=== PATIENT | male | born 1945 | race Caucasian/White ===

== ENCOUNTER 2020-11-25 11:14 | Inpatient (IN) ==
[2020-11-25] MEDS ORDERED: LORazepam 2 MG/1 ML VIAL ONE (12:27)
[2020-11-25 12:48] LABS: ABG Base Excess -6.1 MMOL/L (-2.5-2.5); ABG Oxygen Saturation 96.2 % (95-100); ABG PCO2 25.6 MM HG (35-48); ABG PH 7.414 (7.35-7.45); ABG PO2 88.9 MM HG (80-95); ABG TCO2 16.8 MMOL/L (23-27)
[2020-11-25] MEDS ORDERED: LORazepam 2 MG/1 ML VIAL IV STA (12:48)
[2020-11-25 12:49] LABS: Basophils % 0.2 % (0.0-0.8); Hematocrit 53.3 VOL% (42.0-52.0); Hemoglobin 18.2 GM/DL (14.0-18.0); Immature Granulocytes % 0.8 %; Immature Granulocytes Absolute 0.13 #; Lymphocytes # 0.7 10*3/uL (1.4-4.0); Lymphocytes % 4.1 % (21.2-54.2); Mean Corpuscular HGB Conc 34.1 GM/DL (32-36); Mean Corpuscular Volume 89.3 FL (87-102); Monocytes % 5.1 % (1.7-12.7); Neutrophils % 89.8 % (38.7-73.9); Platelet Count 199 T/CUMM (130-400); Red Blood Count 5.97 MC/CUMM (3.8-5.5); Red Cell Distribution Width 14.4 % (9.3-17.3); White Blood Count 16.2 T/CUMM (4-12)
[2020-11-25 13:02] LABS: INR 1.6; PT Patient Result 17.1 SECS (10.5-12.0); Partial Thromboplastin Time 27.3 SECS (23.9-33.8)
[2020-11-25] MEDS ORDERED: ALBUTEROL 2.5 MG/3 ML NEB RESP TX PRN (13:25)
[2020-11-25] MEDS ORDERED: DILTIAZEM 50 MG/10 ML VIAL IV STA (13:28)
[2020-11-25] MEDS ORDERED: DILTIAZEM INJ 100 MG in SODIUM CHLORIDE 0.9% 100 ML IV SCH (13:30)
[2020-11-25] MEDS ORDERED: hydrALAZINE 20 MG/1 ML VIAL IV PRN (13:32)
[2020-11-25] MEDS ORDERED: ZIPRASIDONE 20 MG/1 ML VIAL IM ONE (13:37)
[2020-11-25] MEDS: FAMOTIDINE 20 MG/2 ML VIAL IV SCH (13:55)
[2020-11-25] MEDS: PIPERACILLIN/TAZOBACTAM 3,375 MG in SODIUM CHLORIDE 0.9% 100 ML IV SCH ×2 (14:00→22:46)
[2020-11-25 14:14] LABS: Ferritin 1596.9 ng/ml (26-388)
[2020-11-25] MEDS: ENOXAPARIN 100 MG/ML SYRINGE SUBCUT SCH (14:17)
[2020-11-25] MEDS ORDERED: FUROSEMIDE 40 MG/4 ML VIAL IV ONE (15:01)
[2020-11-25] MEDS ORDERED: ROCURONIUM 100 MG/10 ML VIAL IV ONE (15:33)
[2020-11-25] MEDS ORDERED: ACETAMINOPHEN 325 MG TABLET PO PRN (15:38)
[2020-11-25 15:41] LABS: Albumin 3.5 G/DL (3.4-5.0); Bilirubin,Total 1.8 MG/DL (0.20-1.00); Calcium 9.1 MG/DL (8.5-10.1); Osmolality,Calculated 299.5 MOS/KG (273-304); Potassium 4.4 MMOL/L (3.5-5.1); Total Protein 6.4 G/DL (6.4-8.2)
[2020-11-25] MEDS ORDERED: NOREPINEPHRINE 4 MG/4 ML VIAL IV ONE ×4 (15:43→21:30)
[2020-11-25] MEDS: NOREPINEPHRINE 8 MG in SODIUM CHLORIDE 0.9% 242 ML IV PRN ×2 (16:10→21:39)
[2020-11-25 16:14] LABS: Band Neutrophils 2 % (0-10); Lymphocytes 5 % (20-55); Platelet Estimate Normal; Segmented Neutrophils 86 % (50-85); Total Cells Counted 100
[2020-11-25] MEDS ORDERED: AMIODARONE INJ 450 MG in DEXTROSE 5% 241 ML IV SCH ×2 (16:30→18:00)
[2020-11-25 16:43] LABS: Basophils # 0.1 10*3/uL (0.0-0.2); Basophils % 0.3 % (0.0-0.8); Hematocrit 50.5 VOL% (42.0-52.0); Hemoglobin 17.2 GM/DL (14.0-18.0); Immature Granulocytes % 1.6 %; Immature Granulocytes Absolute 0.25 #; Lymphocytes # 1.2 10*3/uL (1.4-4.0); Lymphocytes % 7.6 % (21.2-54.2); Mean Corpuscular HGB Conc 34.1 GM/DL (32-36); Mean Corpuscular Volume 91.7 FL (87-102); Mean Platelet Volume 11.1 FL (9.6-12.0); Monocytes % 4.6 % (1.7-12.7); NRBC # 0.02 10*3/uL; Neutrophils % 85.9 % (38.7-73.9); Platelet Count 194 T/CUMM (130-400); Red Blood Count 5.51 MC/CUMM (3.8-5.5); Red Cell Distribution Width 14.3 % (9.3-17.3); White Blood Count 15.9 T/CUMM (4-12)
[2020-11-25 17:01] LABS: Albumin 3.2 G/DL (3.4-5.0); Bilirubin,Total 1.5 MG/DL (0.20-1.00); Calcium 8.6 MG/DL (8.5-10.1); INR 1.8; Osmolality,Calculated 310.4 MOS/KG (273-304); PT Patient Result 19.4 SECS (10.5-12.0); Potassium 4.8 MMOL/L (3.5-5.1); Total Protein 5.5 G/DL (6.4-8.2)
[2020-11-25 18:11] LABS: ABG HCO3 15.2 MMOL/L (20-26); ABG PCO2 46.9 MM HG (35-48); ABG PO2 127.4 MM HG (80-95); ABG TCO2 16.6 MMOL/L (23-27)
[2020-11-25] MEDS ORDERED: AMIODARONE 150 MG/3 ML VIAL ONE (18:11)
[2020-11-25 18:13] LABS: ABG PH 7.128 (7.35-7.45)
[2020-11-25] MEDS ORDERED: AMIODARONE INJ 150 MG in DEXTROSE 5% 100 ML IV ONE (18:15)
[2020-11-25] MEDS: SODIUM BICARB INJ 100 MEQ in DEXTROSE 5% 1,000 ML IV SCH (18:15)
[2020-11-25] MEDS: MIDAZOLAM 100 MG in SODIUM CHLORIDE 0.9% 80 ML IV PRN (18:45)
[2020-11-25] MEDS: SODIUM BICARB INJ 150 MEQ in DEXTROSE 5% 1,000 ML IV SCH (19:00)
[2020-11-25] MEDS: fentaNYL INJ 1,250 MCG in SODIUM CHLORIDE 0.9% 225 ML IV PRN (19:15)
[2020-11-25] MEDS: ASCORBIC ACID 500 MG TABLET PO SCH (22:51)
[2020-11-26] MEDS: AMIODARONE INJ 450 MG in DEXTROSE 5% 241 ML IV SCH ×3 (00:01→16:53)
[2020-11-26] MEDS: fentaNYL INJ 1,250 MCG in SODIUM CHLORIDE 0.9% 225 ML IV PRN ×2 (00:15→16:00)
[2020-11-26] MEDS: NOREPINEPHRINE 8 MG in SODIUM CHLORIDE 0.9% 242 ML IV PRN ×4 (01:21→22:01)
[2020-11-26] MEDS: ENOXAPARIN 100 MG/ML SYRINGE SUBCUT SCH (01:46)
[2020-11-26] MEDS: FAMOTIDINE 20 MG/2 ML VIAL IV SCH (01:46)
[2020-11-26 04:34] LABS: Basophils % 0.2 % (0.0-0.8); Hematocrit 48.9 VOL% (42.0-52.0); Hemoglobin 16.2 GM/DL (14.0-18.0); Immature Granulocytes % 1.2 %; Lymphocytes # 0.4 10*3/uL (1.4-4.0); Lymphocytes % 1.8 % (21.2-54.2); Mean Corpuscular HGB Conc 33.1 GM/DL (32-36); Mean Corpuscular Volume 92.8 FL (87-102); Mean Platelet Volume 11.8 FL (9.6-12.0); Monocytes % 2.6 % (1.7-12.7); NRBC # 0.02 10*3/uL; Neutrophils % 94.2 % (38.7-73.9); Platelet Count 207 T/CUMM (130-400); Red Blood Count 5.27 MC/CUMM (3.8-5.5); White Blood Count 24.2 T/CUMM (4-12)
[2020-11-26 04:45] LABS: INR 1.7
[2020-11-26 04:53] LABS: ABG Base Excess -11.6 MMOL/L (-2.5-2.5); ABG HCO3 15.1 MMOL/L (20-26); ABG Oxygen Saturation 70.2 % (95-100); ABG PCO2 57.7 MM HG (35-48); ABG TCO2 17.2 MMOL/L (23-27)
[2020-11-26 04:56] LABS: ABG PH 7.137 (7.35-7.45)
[2020-11-26 05:03] LABS: Albumin 2.9 G/DL (3.4-5.0); Bilirubin,Total 1.5 MG/DL (0.20-1.00); Calcium 7.5 MG/DL (8.5-10.1); Osmolality,Calculated 312.5 MOS/KG (273-304); Risk Ratio 5.94; Thyroid Stimulating Hormone 1.47 uIU/ml (0.358-3.74); Total Protein 5.5 G/DL (6.4-8.2); VLDL Cholesterol 63.8 MG/DL
[2020-11-26 05:10] LABS: Potassium 6.7 MMOL/L (3.5-5.1)
[2020-11-26 05:11] LABS: Lymphocytes 1 % (20-55); Platelet Estimate Adequate; Segmented Neutrophils 97 % (50-85); Total Cells Counted 100
[2020-11-26] MEDS ORDERED: INSULIN REGULAR 100 UNIT/ML IV ONE ×2 (05:16→10:34)
[2020-11-26] MEDS ORDERED: SODIUM CHLORIDE 0.9% 1,000 ML IV ONE ×2 (05:16→13:06)
[2020-11-26 05:26] LABS: ABG Base Excess -10.1 MMOL/L (-2.5-2.5); ABG HCO3 17.3 MMOL/L (20-26); ABG Oxygen Saturation 99.3 % (95-100); ABG PCO2 43.3 MM HG (35-48); ABG PO2 297.8 MM HG (80-95); ABG TCO2 18.7 MMOL/L (23-27)
[2020-11-26] MEDS: PIPERACILLIN/TAZOBACTAM 3,375 MG in SODIUM CHLORIDE 0.9% 100 ML IV SCH ×2 (06:26→17:29)
[2020-11-26] MEDS: SODIUM BICARB INJ 100 MEQ in DEXTROSE 5% 1,000 ML IV SCH (06:50)
[2020-11-26] MEDS: ASCORBIC ACID 500 MG TABLET PO SCH ×2 (08:19→20:02)
[2020-11-26] MEDS: CHOLECALCIFEROL 1,000 UNIT TABLET PO SCH (08:19)
[2020-11-26] MEDS: ZINC GLUCONATE 50 MG TABLET PO SCH (08:19)
[2020-11-26] MEDS: INSULIN REGULAR 100 UNIT/ML SUBCUT SCH ×4 (08:20→20:02)
[2020-11-26] MEDS ORDERED: CALCIUM GLUCONATE 1,000 MG in SODIUM CHLORIDE 0.9% 100 ML IV ONE (08:44)
[2020-11-26] MEDS: MICAFUNGIN 100 MG in SODIUM CHLORIDE 0.9% 100 ML IV SCH (09:13)
[2020-11-26] MEDS: SODIUM BICARB INJ 150 MEQ in STERILE WATER INJ 1,000 ML IV SCH ×2 (09:14→21:21)
[2020-11-26] MEDS: INSULIN GLARGINE 100 UNIT/ML SUBCUT SCH (09:36)
[2020-11-26] MEDS: RIFAXIMIN 550 MG TABLET PO SCH ×2 (09:40→21:00)
[2020-11-26] MEDS: ASPIRIN CHEW 81 MG TABLET PO SCH (10:24)
[2020-11-26] MEDS: SODIUM ZIRCONIUM CYCLOSILICATE 10 GM PACK PO SCH ×2 (10:24→14:29)
[2020-11-26] MEDS: SODIUM BICARB INJ 150 MEQ in DEXTROSE 5% 1,000 ML IV SCH (13:11)
[2020-11-26 15:03] LABS: Calcium 6.8 MG/DL (8.5-10.1); Osmolality,Calculated 312.7 MOS/KG (273-304); Potassium 4.8 MMOL/L (3.5-5.1)
[2020-11-26] MEDS ORDERED: SODIUM CHLORIDE 0.9% 250 ML IV ONE (16:08)
[2020-11-26] MEDS: MIDAZOLAM 100 MG in SODIUM CHLORIDE 0.9% 80 ML IV PRN (19:16)
[2020-11-26 19:34] LABS: Hepatitis B Core IgM Quant 0.07 Index; Hepatitis B Surface Ag Quant < 0.10 Index; Hepatitis B Surface Ag Result Non-Reactive (NonReactive); Hepatitis C Virus Ab Quant 0.05 Index; Hepatitis C Virus Ab Result Non-Reactive (NonReactive)
[2020-11-27] MEDS: SODIUM BICARB INJ 150 MEQ in STERILE WATER INJ 1,000 ML IV SCH ×2 (00:04→12:45)
[2020-11-27] MEDS ORDERED: SODIUM CHLORIDE 0.9% 250 ML IV ONE ×2 (00:05→04:07)
[2020-11-27] MEDS ORDERED: ENOXAPARIN 100 MG/ML SYRINGE SUBCUT SCH (01:00)
[2020-11-27] MEDS: INSULIN REGULAR 100 UNIT/ML SUBCUT SCH ×6 (01:37→22:16)
[2020-11-27 04:39] LABS: Calcium 6.9 MG/DL (8.5-10.1); Potassium 3.9 MMOL/L (3.5-5.1)
[2020-11-27 04:54] LABS: Basophils % 0.1 % (0.0-0.8); Eosinophils # 0.2 10*3/uL (0.0-0.87); Eosinophils % 1.6 % (0.00-10.9); Hematocrit 42.2 VOL% (42.0-52.0); Hemoglobin 14.6 GM/DL (14.0-18.0); Immature Granulocytes % 0.8 %; Immature Granulocytes Absolute 0.09 #; Lymphocytes # 0.5 10*3/uL (1.4-4.0); Lymphocytes % 4.5 % (21.2-54.2); Mean Corpuscular HGB Conc 34.6 GM/DL (32-36); Mean Corpuscular Volume 90.6 FL (87-102); Mean Platelet Volume 12.5 FL (9.6-12.0); NRBC # 0.02 10*3/uL; Red Blood Count 4.66 MC/CUMM (3.8-5.5); Red Cell Distribution Width 15.2 % (9.3-17.3)
[2020-11-27 04:56] LABS: Platelet Count 140 T/CUMM (130-400)
[2020-11-27 05:45] LABS: ABG HCO3 20.6 MMOL/L (20-26); ABG Oxygen Saturation 95.5 % (95-100); ABG PCO2 40.1 MM HG (35-48); ABG PH 7.328 (7.35-7.45); ABG PO2 82.3 MM HG (80-95); ABG TCO2 21.8 MMOL/L (23-27)
[2020-11-27] MEDS: PIPERACILLIN/TAZOBACTAM 3,375 MG in SODIUM CHLORIDE 0.9% 100 ML IV SCH ×2 (05:54→17:08)
[2020-11-27] MEDS: NOREPINEPHRINE 8 MG in SODIUM CHLORIDE 0.9% 242 ML IV PRN ×2 (06:00→15:22)
[2020-11-27] MEDS: fentaNYL INJ 1,250 MCG in SODIUM CHLORIDE 0.9% 225 ML IV PRN (06:25)
[2020-11-27 07:04] LABS: Bilirubin,Urine Negative (Negative); Blood, Urine Large mg/dL (Negative); Glucose,Urine (UA) >=500 mg/dL (Negative); Ketones,Urine Negative (Negative); Nitrite,Urine Negative (Negative); Protein,Urine 100 MG/DL; RBC,Urine 1004 /HPF (0-4); Squamous Epithelial Cell,Urine Occasional /HPF (0-10); Urine Appearance CLOUDY (Clear); Urine Color Amber (Yellow); Urine Specific Gravity 1.018 (1.001-1.035); Urine Urobilinogen < 2.0 EU/DL (0.2-1.0)
[2020-11-27] MEDS: AMIODARONE INJ 450 MG in DEXTROSE 5% 241 ML IV SCH ×2 (07:20→23:32)
[2020-11-27] MEDS: ASPIRIN CHEW 81 MG TABLET PO SCH (08:30)
[2020-11-27] MEDS: CHOLECALCIFEROL 1,000 UNIT TABLET PO SCH (08:30)
[2020-11-27] MEDS: ZINC GLUCONATE 50 MG TABLET PO SCH (08:30)
[2020-11-27] MEDS: MICAFUNGIN 100 MG in SODIUM CHLORIDE 0.9% 100 ML IV SCH (08:31)
[2020-11-27] MEDS: ASCORBIC ACID 500 MG TABLET PO SCH ×2 (08:31→22:16)
[2020-11-27] MEDS: FAMOTIDINE 20 MG/2 ML VIAL IV SCH (08:35)
[2020-11-27] MEDS ORDERED: SODIUM ZIRCONIUM CYCLOSILICATE 10 GM PACK PO SCH (09:00)
[2020-11-27] MEDS ORDERED: DEXAMETHASONE 4 MG/1 ML VIAL IV SCH (09:00)
[2020-11-27] MEDS: RIFAXIMIN 550 MG TABLET PO SCH ×2 (09:21→22:17)
[2020-11-27] MEDS: INSULIN GLARGINE 100 UNIT/ML SUBCUT SCH (09:22)
[2020-11-27] MEDS: HEPARIN DRIP 25,000 UNITS/500 ML PREMIX IV SCH ×2 (10:20→23:26)
[2020-11-27 11:50] LABS: Lymphocytes 2 % (20-55); Segmented Neutrophils 96 % (50-85); Total Cells Counted 100
[2020-11-27 11:51] LABS: Platelet Estimate Adequate
[2020-11-27] MEDS: MIDAZOLAM 100 MG in SODIUM CHLORIDE 0.9% 80 ML IV PRN (12:14)
[2020-11-27] MEDS ORDERED: HEPARIN 5,000 UNIT/1 ML VIAL IV ONE (17:02)
[2020-11-27] MEDS ORDERED: METOPROLOL TARTRATE 5 MG/5 ML VIAL IV ONE (18:01)
[2020-11-27] MEDS ORDERED: INSULIN GLARGINE 100 UNIT/ML SUBCUT SCH (21:00)
[2020-11-27] MEDS: DEXAMETHASONE 4 MG/1 ML VIAL IV SCH (22:17)
[2020-11-28] MEDS: NOREPINEPHRINE 8 MG in SODIUM CHLORIDE 0.9% 242 ML IV PRN ×2 (00:36→16:13)
[2020-11-28] MEDS: INSULIN REGULAR 100 UNIT/ML SUBCUT SCH ×6 (00:36→20:38)
[2020-11-28] MEDS: MIDAZOLAM 100 MG in SODIUM CHLORIDE 0.9% 80 ML IV PRN ×2 (00:50→19:36)
[2020-11-28] MEDS: fentaNYL INJ 1,250 MCG in SODIUM CHLORIDE 0.9% 225 ML IV PRN (03:13)
[2020-11-28 04:55] LABS: Basophils % 0.1 % (0.0-0.8); Hematocrit 38.5 VOL% (42.0-52.0); Hemoglobin 13.1 GM/DL (14.0-18.0); Immature Granulocytes % 1.2 %; Immature Granulocytes Absolute 0.15 #; Lymphocytes # 0.1 10*3/uL (1.4-4.0); Lymphocytes % 0.7 % (21.2-54.2); Mean Corpuscular Volume 91.4 FL (87-102); Mean Platelet Volume 12.6 FL (9.6-12.0); Platelet Count 139 T/CUMM (130-400); Red Blood Count 4.21 MC/CUMM (3.8-5.5); Red Cell Distribution Width 15.1 % (9.3-17.3); White Blood Count 12.4 T/CUMM (4-12)
[2020-11-28 05:04] LABS: ABG Base Excess -7.5 MMOL/L (-2.5-2.5); ABG HCO3 18.8 MMOL/L (20-26); ABG Oxygen Saturation 93.5 % (95-100); ABG PCO2 41.2 MM HG (35-48); ABG PH 7.278 (7.35-7.45); ABG PO2 74.1 MM HG (80-95); ABG TCO2 20.1 MMOL/L (23-27)
[2020-11-28 05:33] LABS: Ferritin 2314.9 ng/ml (26-388)
[2020-11-28] MEDS: PIPERACILLIN/TAZOBACTAM 3,375 MG in SODIUM CHLORIDE 0.9% 100 ML IV SCH ×2 (05:55→17:59)
[2020-11-28] MEDS: MICAFUNGIN 100 MG in SODIUM CHLORIDE 0.9% 100 ML IV SCH (08:29)
[2020-11-28] MEDS: CHOLECALCIFEROL 1,000 UNIT TABLET PO SCH (08:30)
[2020-11-28] MEDS: FAMOTIDINE 20 MG/2 ML VIAL IV SCH (08:30)
[2020-11-28] MEDS: ASPIRIN CHEW 81 MG TABLET PO SCH (08:30)
[2020-11-28] MEDS: ZINC GLUCONATE 50 MG TABLET PO SCH (08:30)
[2020-11-28] MEDS: DEXAMETHASONE 4 MG/1 ML VIAL IV SCH ×2 (08:30→20:37)
[2020-11-28] MEDS: ASCORBIC ACID 500 MG TABLET PO SCH ×2 (08:30→20:39)
[2020-11-28] MEDS ORDERED: INSULIN GLARGINE 100 UNIT/ML SUBCUT ONE (09:19)
[2020-11-28] MEDS: RIFAXIMIN 550 MG TABLET PO SCH ×2 (09:40→20:37)
[2020-11-28 10:21] LABS: Lymphocytes 1 % (20-55); Platelet Estimate Adequate; Segmented Neutrophils 99 % (50-85); Total Cells Counted 100
[2020-11-28] MEDS: HEPARIN DRIP 25,000 UNITS/500 ML PREMIX IV SCH ×2 (11:03→13:25)
[2020-11-28] MEDS ORDERED: METOPROLOL TARTRATE 5 MG/5 ML VIAL IV SCH (12:00)
[2020-11-28 13:37] LABS: Albumin 1.9 G/DL (3.4-5.0); Bilirubin,Total 0.8 MG/DL (0.20-1.00); Calcium 6.9 MG/DL (8.5-10.1); Osmolality,Calculated 300.4 MOS/KG (273-304); Potassium 4.9 MMOL/L (3.5-5.1); Total Protein 4.7 G/DL (6.4-8.2)
[2020-11-28] MEDS: AMIODARONE INJ 450 MG in DEXTROSE 5% 241 ML IV SCH ×2 (13:37→15:50)
[2020-11-28] MEDS: INSULIN GLARGINE 100 UNIT/ML SUBCUT SCH (20:38)
[2020-11-28] MEDS: METOPROLOL TARTRATE 5 MG/5 ML VIAL IV PRN (22:51)
[2020-11-29] MEDS: INSULIN REGULAR 100 UNIT/ML SUBCUT SCH ×6 (00:01→21:56)
[2020-11-29 03:31] LABS: Basophils % 0.1 % (0.0-0.8); Immature Granulocytes % 0.8 %; Immature Granulocytes Absolute 0.12 #; Lymphocytes # 0.2 10*3/uL (1.4-4.0); Lymphocytes % 1.5 % (21.2-54.2); Mean Corpuscular HGB Conc 34.3 GM/DL (32-36); Mean Corpuscular Volume 90.4 FL (87-102); NRBC # 0.03 10*3/uL; Neutrophils % 94.6 % (38.7-73.9); Platelet Count 212 T/CUMM (130-400); Red Blood Count 3.87 MC/CUMM (3.8-5.5); Red Cell Distribution Width 15.2 % (9.3-17.3); White Blood Count 14.5 T/CUMM (4-12)
[2020-11-29] MEDS: AMIODARONE INJ 450 MG in DEXTROSE 5% 241 ML IV SCH ×3 (03:41→18:00)
[2020-11-29 03:53] LABS: Bilirubin,Total 0.7 MG/DL (0.20-1.00); Calcium 6.7 MG/DL (8.5-10.1); Osmolality,Calculated 300.4 MOS/KG (273-304); Potassium 5.1 MMOL/L (3.5-5.1); Total Protein 4.8 G/DL (6.4-8.2)
[2020-11-29 03:57] LABS: Calcium 6.9 MG/DL (8.5-10.1); Osmolality,Calculated 302.2 MOS/KG (273-304); Potassium 5.1 MMOL/L (3.5-5.1)
[2020-11-29 04:12] LABS: Lymphocytes 2 % (20-55); Platelet Estimate Normal; Segmented Neutrophils 96 % (50-85); Total Cells Counted 100
[2020-11-29] MEDS: NOREPINEPHRINE 8 MG in SODIUM CHLORIDE 0.9% 242 ML IV PRN ×2 (04:29→17:00)
[2020-11-29] MEDS: fentaNYL INJ 1,250 MCG in SODIUM CHLORIDE 0.9% 225 ML IV PRN ×2 (04:36→20:40)
[2020-11-29 04:51] LABS: ABG Oxygen Saturation 98.2 % (95-100); ABG PCO2 46.4 MM HG (35-48); ABG PH 7.234 (7.35-7.45); ABG TCO2 17.7 MMOL/L (23-27)
[2020-11-29] MEDS: PIPERACILLIN/TAZOBACTAM 3,375 MG in SODIUM CHLORIDE 0.9% 100 ML IV SCH ×2 (05:50→18:17)
[2020-11-29] MEDS: DEXAMETHASONE 4 MG/1 ML VIAL IV SCH ×2 (08:43→21:56)
[2020-11-29] MEDS: FAMOTIDINE 20 MG/2 ML VIAL IV SCH (08:43)
[2020-11-29] MEDS: RIFAXIMIN 550 MG TABLET PO SCH ×2 (08:44→21:58)
[2020-11-29] MEDS: ASCORBIC ACID 500 MG TABLET PO SCH ×2 (08:44→21:58)
[2020-11-29] MEDS: ASPIRIN CHEW 81 MG TABLET PO SCH (08:44)
[2020-11-29] MEDS: ZINC GLUCONATE 50 MG TABLET PO SCH (08:44)
[2020-11-29] MEDS: CHOLECALCIFEROL 1,000 UNIT TABLET PO SCH (08:44)
[2020-11-29] MEDS: MICAFUNGIN 100 MG in SODIUM CHLORIDE 0.9% 100 ML IV SCH (08:45)
[2020-11-29] MEDS: METOPROLOL TARTRATE 5 MG/5 ML VIAL IV PRN (13:59)
[2020-11-29] MEDS: MIDAZOLAM 100 MG in SODIUM CHLORIDE 0.9% 80 ML IV PRN (21:54)
[2020-11-29] MEDS: INSULIN GLARGINE 100 UNIT/ML SUBCUT SCH (21:55)
[2020-11-29] MEDS: ONDANSETRON 4 MG/2 ML VIAL IV PRN (22:05)
[2020-11-29] MEDS ORDERED: PROMETHAZINE INJ 25 MG in SODIUM CHLORIDE 0.9% 50 ML IV ONE (23:06)
[2020-11-30] MEDS: AMIODARONE INJ 450 MG in DEXTROSE 5% 241 ML IV SCH ×2 (01:28→10:57)
[2020-11-30] MEDS: INSULIN REGULAR 100 UNIT/ML SUBCUT SCH ×6 (01:47→21:50)
[2020-11-30] MEDS: NOREPINEPHRINE 8 MG in SODIUM CHLORIDE 0.9% 242 ML IV PRN ×2 (03:20→18:19)
[2020-11-30 03:42] LABS: ABG Base Excess -9.2 MMOL/L (-2.5-2.5); ABG HCO3 20.4 MMOL/L (20-26); ABG Oxygen Saturation 95.1 % (95-100); ABG PCO2 61.8 MM HG (35-48); ABG PO2 93.5 MM HG (80-95); ABG TCO2 22.3 MMOL/L (23-27); Allen Test Positive; Pt O2 Delivery Device Ventilator
[2020-11-30 03:54] LABS: ABG PH 7.137 (7.35-7.45)
[2020-11-30] MEDS ORDERED: SODIUM BICARBONATE 50 MEQ/50 ML VIAL IV ONE (04:24)
[2020-11-30 05:04] LABS: Basophils % 0.1 % (0.0-0.8); Hematocrit 33.2 VOL% (42.0-52.0); Hemoglobin 11.3 GM/DL (14.0-18.0); Immature Granulocytes % 1.3 %; Immature Granulocytes Absolute 0.19 #; Lymphocytes # 0.1 10*3/uL (1.4-4.0); Lymphocytes % 0.9 % (21.2-54.2); Mean Corpuscular Volume 91.7 FL (87-102); Mean Platelet Volume 12.3 FL (9.6-12.0); Monocytes % 5.2 % (1.7-12.7); NRBC # 0.03 10*3/uL; Neutrophils % 92.5 % (38.7-73.9); Platelet Count 191 T/CUMM (130-400); Red Blood Count 3.62 MC/CUMM (3.8-5.5); Red Cell Distribution Width 15.5 % (9.3-17.3)
[2020-11-30 05:28] LABS: Albumin 2.1 G/DL (3.4-5.0); Bilirubin,Total 1.5 MG/DL (0.20-1.00); Calcium 7.1 MG/DL (8.5-10.1); Osmolality,Calculated 299.1 MOS/KG (273-304); Potassium 5.1 MMOL/L (3.5-5.1); Total Protein 4.9 G/DL (6.4-8.2)
[2020-11-30 05:33] LABS: Hypochromasia 1+; Lymphocytes 2 % (20-55); Microcytosis 1+; Platelet Estimate Adequate; Segmented Neutrophils 94 % (50-85); Total Cells Counted 100
[2020-11-30] MEDS: PIPERACILLIN/TAZOBACTAM 3,375 MG in SODIUM CHLORIDE 0.9% 100 ML IV SCH ×2 (05:50→17:00)
[2020-11-30] MEDS: FAMOTIDINE 20 MG/2 ML VIAL IV SCH (08:32)
[2020-11-30] MEDS: DEXAMETHASONE 4 MG/1 ML VIAL IV SCH ×2 (08:33→21:52)
[2020-11-30] MEDS: RIFAXIMIN 550 MG TABLET PO SCH ×2 (08:33→21:50)
[2020-11-30] MEDS: ASPIRIN CHEW 81 MG TABLET PO SCH (08:34)
[2020-11-30] MEDS: ZINC GLUCONATE 50 MG TABLET PO SCH (08:34)
[2020-11-30] MEDS: CHOLECALCIFEROL 1,000 UNIT TABLET PO SCH (08:34)
[2020-11-30] MEDS: MICAFUNGIN 100 MG in SODIUM CHLORIDE 0.9% 100 ML IV SCH (08:41)
[2020-11-30] MEDS: ASCORBIC ACID 500 MG TABLET PO SCH ×2 (08:41→21:50)
[2020-11-30] MEDS ORDERED: DIGOXIN 0.5 MG/2 ML AMP IV ONE ×2 (11:46→12:47)
[2020-11-30] MEDS: METOPROLOL TARTRATE 5 MG/5 ML VIAL IV PRN ×2 (12:07→19:23)
[2020-11-30] MEDS ORDERED: HEPARIN 10,000 UNIT/10 ML VIAL IV PRN (15:32)
[2020-11-30] MEDS: MIDAZOLAM 100 MG in SODIUM CHLORIDE 0.9% 80 ML IV PRN (16:03)
[2020-11-30] MEDS: ALUMINUM/MAGNES/SIMETH MAX STR 30 ML UDCUP PO SCH ×2 (18:14→21:52)
[2020-11-30] MEDS: AMIODARONE 200 MG TABLET PO SCH (21:50)
[2020-11-30] MEDS: INSULIN GLARGINE 100 UNIT/ML SUBCUT SCH (21:51)
[2020-11-30] MEDS: ONDANSETRON 4 MG/2 ML VIAL IV PRN (21:51)
[2020-11-30] MEDS: fentaNYL INJ 1,250 MCG in SODIUM CHLORIDE 0.9% 225 ML IV PRN (23:05)
[2020-12-01] MEDS: INSULIN REGULAR 100 UNIT/ML SUBCUT SCH ×6 (00:55→20:46)
[2020-12-01] MEDS: ALUMINUM/MAGNES/SIMETH MAX STR 30 ML UDCUP PO SCH ×6 (00:58→20:47)
[2020-12-01] MEDS: METOPROLOL TARTRATE 5 MG/5 ML VIAL IV PRN ×3 (03:03→22:30)
[2020-12-01 04:05] LABS: ABG Base Excess -4.6 MMOL/L (-2.5-2.5); ABG HCO3 20.3 MMOL/L (20-26); ABG Oxygen Saturation 98.5 % (95-100); ABG PCO2 36.8 MM HG (35-48); ABG PO2 203.4 MM HG (80-95); ABG TCO2 21.5 MMOL/L (23-27); Allen Test Positive; Pt O2 Delivery Device Ventilator
[2020-12-01 05:10] LABS: Basophils % 0.1 % (0.0-0.8); Hematocrit 27.6 VOL% (42.0-52.0); Hemoglobin 9.9 GM/DL (14.0-18.0); Immature Granulocytes Absolute 0.33 #; Lymphocytes # 0.3 10*3/uL (1.4-4.0); Lymphocytes % 1.8 % (21.2-54.2); Mean Corpuscular HGB Conc 35.9 GM/DL (32-36); Mean Corpuscular Volume 89.9 FL (87-102); Mean Platelet Volume 12.1 FL (9.6-12.0); Monocytes % 5.1 % (1.7-12.7); NRBC # 0.09 10*3/uL; Platelet Count 161 T/CUMM (130-400); Red Blood Count 3.07 MC/CUMM (3.8-5.5); Red Cell Distribution Width 15.7 % (9.3-17.3); White Blood Count 16.2 T/CUMM (4-12)
[2020-12-01 05:32] LABS: Hypochromasia 1+; Lymphocytes 2 % (20-55); Microcytosis 1+; Platelet Estimate Adequate; Segmented Neutrophils 91 % (50-85); Total Cells Counted 100
[2020-12-01 05:36] LABS: Osmolality,Calculated 296.1 MOS/KG (273-304); Potassium 4.3 MMOL/L (3.5-5.1)
[2020-12-01] MEDS: PIPERACILLIN/TAZOBACTAM 3,375 MG in SODIUM CHLORIDE 0.9% 100 ML IV SCH ×2 (06:31→18:31)
[2020-12-01] MEDS: NOREPINEPHRINE 8 MG in SODIUM CHLORIDE 0.9% 242 ML IV PRN (06:45)
[2020-12-01] MEDS: MIDAZOLAM 100 MG in SODIUM CHLORIDE 0.9% 80 ML IV PRN (09:15)
[2020-12-01] MEDS: ASPIRIN CHEW 81 MG TABLET PO SCH (09:26)
[2020-12-01] MEDS: AMIODARONE 200 MG TABLET PO SCH ×2 (09:26→20:47)
[2020-12-01] MEDS: DEXAMETHASONE 4 MG/1 ML VIAL IV SCH ×2 (09:26→20:47)
[2020-12-01] MEDS: ASCORBIC ACID 500 MG TABLET PO SCH ×2 (09:27→20:48)
[2020-12-01] MEDS: ZINC GLUCONATE 50 MG TABLET PO SCH (09:27)
[2020-12-01] MEDS: FAMOTIDINE 20 MG/2 ML VIAL IV SCH (09:27)
[2020-12-01] MEDS: CHOLECALCIFEROL 1,000 UNIT TABLET PO SCH (09:27)
[2020-12-01] MEDS: RIFAXIMIN 550 MG TABLET PO SCH ×2 (09:27→20:48)
[2020-12-01] MEDS: MICAFUNGIN 100 MG in SODIUM CHLORIDE 0.9% 100 ML IV SCH (10:15)
[2020-12-01] MEDS ORDERED: DEXTROSE 10% 1,000 ML IV PRN (17:00)
[2020-12-01] MEDS: [UNRECOGNIZED DRUG - OTHER] IV SCH (17:39)
[2020-12-01] MEDS: AMINO ACIDS IV SCH (17:39)
[2020-12-01] MEDS: MULTIVITAMIN IV SCH (17:39)
[2020-12-01] MEDS: INSULIN REGULAR IV SCH (17:39)
[2020-12-01] MEDS: FAT EMULSION 20% 250 ML IV SCH (17:39)
[2020-12-01] MEDS: INSULIN GLARGINE 100 UNIT/ML SUBCUT SCH (20:47)
[2020-12-02] MEDS: INSULIN REGULAR 100 UNIT/ML SUBCUT SCH ×6 (00:22→21:20)
[2020-12-02] MEDS: ALUMINUM/MAGNES/SIMETH MAX STR 30 ML UDCUP PO SCH ×6 (00:26→21:20)
[2020-12-02 04:32] LABS: Calcium 6.9 MG/DL (8.5-10.1); Osmolality,Calculated 311.5 MOS/KG (273-304); Potassium 4.4 MMOL/L (3.5-5.1)
[2020-12-02] MEDS: PIPERACILLIN/TAZOBACTAM 3,375 MG in SODIUM CHLORIDE 0.9% 100 ML IV SCH ×2 (05:14→18:34)
[2020-12-02 05:22] LABS: Allen Test Positive; Pt O2 Delivery Device Ventilator
[2020-12-02 05:24] LABS: ABG Base Excess -8.2 MMOL/L (-2.5-2.5); ABG HCO3 17.7 MMOL/L (20-26); ABG Oxygen Saturation 96.9 % (95-100); ABG PCO2 37.5 MM HG (35-48); ABG PH 7.291 (7.35-7.45); ABG TCO2 18.8 MMOL/L (23-27)
[2020-12-02] MEDS: METOPROLOL TARTRATE 5 MG/5 ML VIAL IV PRN ×2 (09:00→18:17)
[2020-12-02] MEDS: CHOLECALCIFEROL 1,000 UNIT TABLET PO SCH (09:35)
[2020-12-02] MEDS: ASPIRIN CHEW 81 MG TABLET PO SCH (09:35)
[2020-12-02] MEDS: ASCORBIC ACID 500 MG TABLET PO SCH ×2 (09:35→21:22)
[2020-12-02] MEDS: FAMOTIDINE 20 MG/2 ML VIAL IV SCH (09:35)
[2020-12-02] MEDS: DEXAMETHASONE 4 MG/1 ML VIAL IV SCH ×2 (09:35→21:21)
[2020-12-02] MEDS: AMIODARONE 200 MG TABLET PO SCH ×2 (09:35→21:21)
[2020-12-02] MEDS: ZINC GLUCONATE 50 MG TABLET PO SCH (09:36)
[2020-12-02] MEDS: RIFAXIMIN 550 MG TABLET PO SCH ×2 (09:36→21:23)
[2020-12-02] MEDS: MICAFUNGIN 100 MG in SODIUM CHLORIDE 0.9% 100 ML IV SCH (10:30)
[2020-12-02] MEDS ORDERED: METOPROLOL TARTRATE 5 MG/5 ML VIAL IV ONE (10:40)
[2020-12-02] MEDS: MORPHINE 2 MG/1 ML SYRINGE IV PRN (11:10)
[2020-12-02] MEDS ORDERED: DIGOXIN 0.5 MG/2 ML AMP IV ONE ×2 (14:26→15:30)
[2020-12-02] MEDS: FAT EMULSION 20% 250 ML IV SCH (16:39)
[2020-12-02] MEDS: [UNRECOGNIZED DRUG - OTHER] IV SCH (18:11)
[2020-12-02] MEDS: MULTIVITAMIN IV SCH (18:11)
[2020-12-02] MEDS: AMINO ACIDS IV SCH (18:11)
[2020-12-02] MEDS: INSULIN REGULAR IV SCH (18:11)
[2020-12-02] MEDS: fentaNYL INJ 1,250 MCG in SODIUM CHLORIDE 0.9% 225 ML IV PRN (18:34)
[2020-12-02] MEDS: MIDAZOLAM 100 MG in SODIUM CHLORIDE 0.9% 80 ML IV PRN (18:34)
[2020-12-02] MEDS: INSULIN GLARGINE 100 UNIT/ML SUBCUT SCH (21:22)
[2020-12-03] MEDS: INSULIN REGULAR 100 UNIT/ML SUBCUT SCH ×7 (00:21→23:45)
[2020-12-03] MEDS: ALUMINUM/MAGNES/SIMETH MAX STR 30 ML UDCUP PO SCH ×6 (01:30→21:00)
[2020-12-03 04:26] LABS: Basophils % 0.1 % (0.0-0.8); Hematocrit 27.9 VOL% (42.0-52.0); Hemoglobin 9.6 GM/DL (14.0-18.0); Immature Granulocytes % 3.9 %; Immature Granulocytes Absolute 0.79 #; Lymphocytes # 0.3 10*3/uL (1.4-4.0); Lymphocytes % 1.5 % (21.2-54.2); Mean Corpuscular HGB Conc 34.4 GM/DL (32-36); Mean Corpuscular Volume 93.3 FL (87-102); Mean Platelet Volume 12.7 FL (9.6-12.0); Monocytes % 6.3 % (1.7-12.7); NRBC # 0.48 10*3/uL; Neutrophils % 88.2 % (38.7-73.9); Platelet Count 155 T/CUMM (130-400); Red Blood Count 2.99 MC/CUMM (3.8-5.5); Red Cell Distribution Width 16.5 % (9.3-17.3); White Blood Count 20.2 T/CUMM (4-12)
[2020-12-03 04:35] LABS: ABG Base Excess -7.7 MMOL/L (-2.5-2.5); ABG Oxygen Saturation 95.5 % (95-100); ABG PCO2 37.1 MM HG (35-48); ABG PH 7.304 (7.35-7.45); ABG PO2 99.6 MM HG (80-95); ABG TCO2 19.1 MMOL/L (23-27); Allen Test Positive; Pt O2 Delivery Device Ventilator
[2020-12-03 04:50] LABS: Osmolality,Calculated 312.7 MOS/KG (273-304); Potassium 4.8 MMOL/L (3.5-5.1)
[2020-12-03 05:02] LABS: Lymphocytes 2 % (20-55); Nucleated Red Blood Cells 2 (0-5); Polychromasia Slight; Segmented Neutrophils 91 % (50-85); Total Cells Counted 100
[2020-12-03 05:03] LABS: Microcytosis 1+; Ovalocytes Slight; Platelet Estimate Adequate
[2020-12-03] MEDS: PIPERACILLIN/TAZOBACTAM 3,375 MG in SODIUM CHLORIDE 0.9% 100 ML IV SCH (06:41)
[2020-12-03] MEDS ORDERED: INSULIN GLARGINE 100 UNIT/ML SUBCUT ONE (08:00)
[2020-12-03] MEDS: MICAFUNGIN 100 MG in SODIUM CHLORIDE 0.9% 100 ML IV SCH (09:30)
[2020-12-03] MEDS: ASPIRIN CHEW 81 MG TABLET PO SCH (09:42)
[2020-12-03] MEDS: AMIODARONE 200 MG TABLET PO SCH ×2 (09:42→21:30)
[2020-12-03] MEDS: METOPROLOL TARTRATE 25 MG TABLET PO SCH ×2 (09:42→21:30)
[2020-12-03] MEDS: DEXAMETHASONE 4 MG/1 ML VIAL IV SCH ×2 (09:42→21:30)
[2020-12-03] MEDS: ZINC GLUCONATE 50 MG TABLET PO SCH (09:43)
[2020-12-03] MEDS: ASCORBIC ACID 500 MG TABLET PO SCH ×2 (09:43→21:30)
[2020-12-03] MEDS: RIFAXIMIN 550 MG TABLET PO SCH (09:43)
[2020-12-03] MEDS: FAMOTIDINE 20 MG/2 ML VIAL IV SCH (09:43)
[2020-12-03] MEDS: CHOLECALCIFEROL 1,000 UNIT TABLET PO SCH (09:43)
[2020-12-03] MEDS: HEPARIN DRIP 25,000 UNITS/500 ML PREMIX IV SCH (13:51)
[2020-12-03] MEDS ORDERED: AMINO ACIDS 10% IV SCH (17:00)
[2020-12-03] MEDS ORDERED: MULTIVITAMIN IV SCH (17:00)
[2020-12-03] MEDS ORDERED: [UNRECOGNIZED DRUG - OTHER] IV SCH (17:00)
[2020-12-03] MEDS ORDERED: INSULIN REGULAR IV SCH (17:00)
[2020-12-03] MEDS: FAT EMULSION 20% 250 ML IV SCH (17:07)
[2020-12-03] MEDS: MORPHINE 2 MG/1 ML SYRINGE IV PRN (17:50)
[2020-12-03] MEDS ORDERED: INSULIN GLARGINE 100 UNIT/ML SUBCUT SCH (21:00)
[2020-12-03] MEDS ORDERED: INSULIN REGULAR 100 UNIT/ML IV ONE ×2 (22:12→23:43)
[2020-12-04] MEDS: ALUMINUM/MAGNES/SIMETH MAX STR 30 ML UDCUP PO SCH ×6 (01:24→21:31)
[2020-12-04] MEDS: INSULIN REGULAR 100 UNIT/ML SUBCUT SCH ×6 (02:36→21:30)
[2020-12-04 04:13] LABS: ABG Base Excess -5.2 MMOL/L (-2.5-2.5); ABG HCO3 19.1 MMOL/L (20-26); ABG Oxygen Saturation 97.1 % (95-100); ABG PCO2 32.8 MM HG (35-48); ABG PH 7.383 (7.35-7.45); ABG PO2 118.1 MM HG (80-95); ABG TCO2 20.1 MMOL/L (23-27)
[2020-12-04 04:29] LABS: Basophils % 0.2 % (0.0-0.8); Hemoglobin 9.5 GM/DL (14.0-18.0); Immature Granulocytes % 4.1 %; Immature Granulocytes Absolute 0.91 #; Lymphocytes # 0.4 10*3/uL (1.4-4.0); Lymphocytes % 1.6 % (21.2-54.2); Mean Corpuscular HGB Conc 33.9 GM/DL (32-36); Mean Corpuscular Volume 95.2 FL (87-102); Mean Platelet Volume 13.1 FL (9.6-12.0); Monocytes % 6.6 % (1.7-12.7); NRBC # 0.47 10*3/uL; Neutrophils % 87.5 % (38.7-73.9); Red Blood Count 2.94 MC/CUMM (3.8-5.5); Red Cell Distribution Width 18.1 % (9.3-17.3); White Blood Count 22.4 T/CUMM (4-12)
[2020-12-04 04:30] LABS: Platelet Count 115 T/CUMM (130-400)
[2020-12-04 04:58] LABS: Albumin 1.9 G/DL (3.4-5.0); Bilirubin,Total 0.8 MG/DL (0.20-1.00); Calcium 7.4 MG/DL (8.5-10.1); Lymphocytes 6 % (20-55); Nucleated Red Blood Cells 2 (0-5); Osmolality,Calculated 314.8 MOS/KG (273-304); Platelet Estimate Decreased; Potassium 4.7 MMOL/L (3.5-5.1); Segmented Neutrophils 92 % (50-85); Total Cells Counted 100; Total Protein 4.5 G/DL (6.4-8.2)
[2020-12-04 04:59] LABS: Hypochromasia 1+; Macrocytosis Slight; Polychromasia Slight
[2020-12-04] MEDS: AMIODARONE 200 MG TABLET PO SCH ×2 (08:51→21:30)
[2020-12-04] MEDS: METOPROLOL TARTRATE 25 MG TABLET PO SCH ×2 (08:51→21:30)
[2020-12-04] MEDS: ASPIRIN CHEW 81 MG TABLET PO SCH (08:51)
[2020-12-04] MEDS: FAMOTIDINE 20 MG/2 ML VIAL IV SCH (08:51)
[2020-12-04] MEDS: DEXAMETHASONE 4 MG/1 ML VIAL IV SCH ×2 (08:51→21:31)
[2020-12-04] MEDS: ZINC GLUCONATE 50 MG TABLET PO SCH (08:52)
[2020-12-04] MEDS: CHOLECALCIFEROL 1,000 UNIT TABLET PO SCH (08:52)
[2020-12-04] MEDS: ASCORBIC ACID 500 MG TABLET PO SCH ×2 (08:52→21:30)
[2020-12-04] MEDS ORDERED: INSULIN REGULAR IV SCH (10:30)
[2020-12-04] MEDS ORDERED: MULTIVITAMIN IV SCH (10:30)
[2020-12-04] MEDS ORDERED: [UNRECOGNIZED DRUG - OTHER] IV SCH (10:30)
[2020-12-04] MEDS ORDERED: AMINO ACIDS 10% IV SCH (10:30)
[2020-12-04] MEDS: HEPARIN DRIP 25,000 UNITS/500 ML PREMIX IV SCH (10:40)
[2020-12-04] MEDS ORDERED: NOREPINEPHRINE 4 MG/4 ML VIAL IV ONE (11:55)
[2020-12-04] MEDS: NOREPINEPHRINE 8 MG in SODIUM CHLORIDE 0.9% 242 ML IV PRN (12:00)
[2020-12-04] MEDS: FAT EMULSION 20% 250 ML IV SCH (15:57)
[2020-12-04] MEDS: MULTIVITAMIN IV SCH (16:30)
[2020-12-04] MEDS: INSULIN REGULAR IV SCH (16:30)
[2020-12-04] MEDS: AMINO ACIDS 10% IV SCH (16:30)
[2020-12-04] MEDS: [UNRECOGNIZED DRUG - OTHER] IV SCH (16:30)
[2020-12-04] MEDS ORDERED: INSULIN GLARGINE 100 UNIT/ML SUBCUT SCH (21:00)
[2020-12-05] MEDS: INSULIN REGULAR 100 UNIT/ML SUBCUT SCH ×9 (00:01→23:47)
[2020-12-05] MEDS: ALUMINUM/MAGNES/SIMETH MAX STR 30 ML UDCUP PO SCH ×7 (00:01→23:47)
[2020-12-05 00:41] LABS: Basophils % 0.1 % (0.0-0.8); Hematocrit 27.9 VOL% (42.0-52.0); Hemoglobin 9.4 GM/DL (14.0-18.0); Immature Granulocytes % 4.2 %; Immature Granulocytes Absolute 0.94 #; Lymphocytes # 0.3 10*3/uL (1.4-4.0); Lymphocytes % 1.5 % (21.2-54.2); Mean Corpuscular HGB Conc 33.7 GM/DL (32-36); Mean Corpuscular Volume 95.9 FL (87-102); Mean Platelet Volume 13.9 FL (9.6-12.0); NRBC # 0.24 10*3/uL; Neutrophils % 90.2 % (38.7-73.9); Platelet Count 133 T/CUMM (130-400); Red Blood Count 2.91 MC/CUMM (3.8-5.5); Red Cell Distribution Width 18.6 % (9.3-17.3); White Blood Count 22.1 T/CUMM (4-12)
[2020-12-05 01:36] LABS: Band Neutrophils 1 % (0-10); Lymphocytes 2 % (20-55); Nucleated Red Blood Cells 1 (0-5); Segmented Neutrophils 93 % (50-85); Total Cells Counted 100
[2020-12-05 01:37] LABS: Hypochromasia 1+; Platelet Estimate Normal; Polychromasia Few
[2020-12-05 03:41] LABS: ABG HCO3 16.5 MMOL/L (20-26); ABG Oxygen Saturation 98.9 % (95-100); ABG PH 7.304 (7.35-7.45); ABG TCO2 14.3 MMOL/L (23-27)
[2020-12-05] MEDS: METOPROLOL TARTRATE 5 MG/5 ML VIAL IV SCH ×2 (03:43)
[2020-12-05 03:48] LABS: Basophils % 0.1 % (0.0-0.8); Hematocrit 26.6 VOL% (42.0-52.0); Hemoglobin 9.3 GM/DL (14.0-18.0); Immature Granulocytes % 4.6 %; Immature Granulocytes Absolute 0.96 #; Lymphocytes # 0.3 10*3/uL (1.4-4.0); Lymphocytes % 1.5 % (21.2-54.2); Mean Corpuscular Volume 93.3 FL (87-102); Mean Platelet Volume 12.9 FL (9.6-12.0); Monocytes % 4.1 % (1.7-12.7); NRBC # 0.22 10*3/uL; Neutrophils % 89.7 % (38.7-73.9); Platelet Count 113 T/CUMM (130-400); Red Blood Count 2.85 MC/CUMM (3.8-5.5); Red Cell Distribution Width 18.9 % (9.3-17.3)
[2020-12-05 04:21] LABS: Hypochromasia Slight; Microcytosis Slight; Nucleated Red Blood Cells 2 (0-5); Platelet Estimate Decreased; Segmented Neutrophils 98 % (50-85); Total Cells Counted 100
[2020-12-05 04:22] LABS: Albumin 1.8 G/DL (3.4-5.0); Bilirubin,Total 0.5 MG/DL (0.20-1.00); Calcium 7.4 MG/DL (8.5-10.1); Osmolality,Calculated 315.1 MOS/KG (273-304); Potassium 4.8 MMOL/L (3.5-5.1); Total Protein 4.5 G/DL (6.4-8.2)
[2020-12-05] MEDS: MORPHINE 2 MG/1 ML SYRINGE IV PRN ×2 (04:40→20:25)
[2020-12-05] MEDS: METOPROLOL TARTRATE 25 MG TABLET PO SCH ×2 (08:21→20:27)
[2020-12-05] MEDS: AMIODARONE 200 MG TABLET PO SCH ×2 (08:21→20:27)
[2020-12-05] MEDS: DEXAMETHASONE 4 MG/1 ML VIAL IV SCH ×2 (08:21→20:27)
[2020-12-05] MEDS: ASPIRIN CHEW 81 MG TABLET PO SCH (08:21)
[2020-12-05] MEDS: FAMOTIDINE 20 MG/2 ML VIAL IV SCH ×2 (08:21→20:24)
[2020-12-05] MEDS: CHOLECALCIFEROL 1,000 UNIT TABLET PO SCH (08:22)
[2020-12-05] MEDS: ASCORBIC ACID 500 MG TABLET PO SCH ×2 (08:22→20:27)
[2020-12-05] MEDS: METOPROLOL TARTRATE 5 MG/5 ML VIAL IV PRN ×2 (08:23→20:36)
[2020-12-05] MEDS: ZINC GLUCONATE 50 MG TABLET PO SCH (08:23)
[2020-12-05] MEDS: FAT EMULSION 20% 250 ML IV SCH (14:44)
[2020-12-05] MEDS: [UNRECOGNIZED DRUG - OTHER] IV SCH (16:45)
[2020-12-05] MEDS: AMINO ACIDS 10% IV SCH (16:45)
[2020-12-05] MEDS: INSULIN REGULAR IV SCH (16:45)
[2020-12-05] MEDS: MULTIVITAMIN IV SCH (16:45)
[2020-12-05] MEDS ORDERED: INSULIN GLARGINE 100 UNIT/ML SUBCUT SCH (21:00)
[2020-12-05] MEDS: fentaNYL INJ 1,250 MCG in SODIUM CHLORIDE 0.9% 225 ML IV PRN (21:42)
[2020-12-06] MEDS: INSULIN REGULAR 100 UNIT/ML SUBCUT SCH ×11 (01:27→21:25)
[2020-12-06 03:56] LABS: ABG HCO3 14.2 MMOL/L (20-26); ABG Oxygen Saturation 98.4 % (95-100); ABG PCO2 38.8 MM HG (35-48); ABG TCO2 13.9 MMOL/L (23-27)
[2020-12-06 03:59] LABS: ABG PH 7.184 (7.35-7.45)
[2020-12-06] MEDS: ALUMINUM/MAGNES/SIMETH MAX STR 30 ML UDCUP PO SCH ×5 (04:10→20:01)
[2020-12-06 04:16] LABS: Basophils % 0.2 % (0.0-0.8); Eosinophils # 0.1 10*3/uL (0.0-0.87); Eosinophils % 0.2 % (0.00-10.9); Hematocrit 25.3 VOL% (42.0-52.0); Hemoglobin 8.7 GM/DL (14.0-18.0); Immature Granulocytes % 4.2 %; Immature Granulocytes Absolute 1.04 #; Lymphocytes # 0.4 10*3/uL (1.4-4.0); Lymphocytes % 1.4 % (21.2-54.2); Mean Corpuscular HGB Conc 34.4 GM/DL (32-36); Mean Corpuscular Volume 94.4 FL (87-102); Mean Platelet Volume 13.6 FL (9.6-12.0); Monocytes % 4.4 % (1.7-12.7); NRBC # 0.32 10*3/uL; Neutrophils % 89.6 % (38.7-73.9); Platelet Count 110 T/CUMM (130-400); Red Blood Count 2.68 MC/CUMM (3.8-5.5); Red Cell Distribution Width 18.9 % (9.3-17.3); White Blood Count 24.9 T/CUMM (4-12)
[2020-12-06 04:35] LABS: Calcium 7.5 MG/DL (8.5-10.1); Osmolality,Calculated 321.2 MOS/KG (273-304); Potassium 5.3 MMOL/L (3.5-5.1)
[2020-12-06 04:40] LABS: Eosinophils 1 % (0-10); Hypochromasia Slight; Lymphocytes 2 % (20-55); Nucleated Red Blood Cells 1 (0-5); Platelet Estimate Normal; Segmented Neutrophils 93 % (50-85); Total Cells Counted 100
[2020-12-06] MEDS: CHOLECALCIFEROL 1,000 UNIT TABLET PO SCH (08:48)
[2020-12-06] MEDS: ASCORBIC ACID 500 MG TABLET PO SCH ×2 (08:48→20:02)
[2020-12-06] MEDS: FAMOTIDINE 20 MG/2 ML VIAL IV SCH ×2 (08:48→10:30)
[2020-12-06] MEDS: ZINC GLUCONATE 50 MG TABLET PO SCH (08:48)
[2020-12-06] MEDS: METOPROLOL TARTRATE 25 MG TABLET PO SCH ×2 (08:48→20:02)
[2020-12-06] MEDS: AMIODARONE 200 MG TABLET PO SCH ×2 (08:48→20:03)
[2020-12-06] MEDS: ASPIRIN CHEW 81 MG TABLET PO SCH (08:48)
[2020-12-06] MEDS: DEXAMETHASONE 4 MG/1 ML VIAL IV SCH ×2 (08:48→20:02)
[2020-12-06] MEDS ORDERED: SODIUM BICARBONATE 50 MEQ/50 ML VIAL IV ONE (10:16)
[2020-12-06] MEDS ORDERED: fentaNYL INJ 1,250 MCG in SODIUM CHLORIDE 0.9% 225 ML IV PRN (11:54)
[2020-12-06] MEDS ORDERED: SODIUM POLYSTYRENE SULFATE 15 GM/60 ML BOTTLE PO STA (12:51)
[2020-12-06] MEDS ORDERED: NOREPINEPHRINE 4 MG/4 ML VIAL IV ONE (16:23)
[2020-12-06] MEDS: NOREPINEPHRINE 8 MG in SODIUM CHLORIDE 0.9% 242 ML IV PRN ×2 (16:31→23:56)
[2020-12-06] MEDS ORDERED: [UNRECOGNIZED DRUG - OTHER] IV SCH (17:00)
[2020-12-06] MEDS ORDERED: INSULIN REGULAR IV SCH (17:00)
[2020-12-06] MEDS ORDERED: AMINO ACIDS 10% IV SCH (17:00)
[2020-12-06] MEDS ORDERED: MULTIVITAMIN IV SCH (17:00)
[2020-12-06] MEDS: fentaNYL INJ 1,250 MCG in SODIUM CHLORIDE 0.9% 225 ML IV PRN (17:15)
[2020-12-06] MEDS: FAT EMULSION 20% 250 ML IV SCH (17:15)
[2020-12-06] MEDS: INSULIN GLARGINE 100 UNIT/ML SUBCUT SCH (21:25)
[2020-12-07] MEDS: INSULIN REGULAR 100 UNIT/ML SUBCUT SCH ×11 (00:17→19:53)
[2020-12-07] MEDS ORDERED: SODIUM BICARBONATE 50 MEQ/50 ML VIAL IV ONE ×3 (00:30→05:12)
[2020-12-07] MEDS: ALUMINUM/MAGNES/SIMETH MAX STR 30 ML UDCUP PO SCH ×6 (01:03→20:44)
[2020-12-07] MEDS: fentaNYL INJ 1,250 MCG in SODIUM CHLORIDE 0.9% 225 ML IV PRN (01:15)
[2020-12-07 04:01] LABS: ABG Base Excess -14.5 MMOL/L (-2.5-2.5); ABG HCO3 13.2 MMOL/L (20-26); ABG Oxygen Saturation 98.4 % (95-100); ABG PCO2 40.7 MM HG (35-48); ABG TCO2 13.3 MMOL/L (23-27)
[2020-12-07 04:04] LABS: Basophils # 0.1 10*3/uL (0.0-0.2); Basophils % 0.2 % (0.0-0.8); Hematocrit 27.1 VOL% (42.0-52.0); Hemoglobin 8.9 GM/DL (14.0-18.0); Immature Granulocytes % 5.4 %; Immature Granulocytes Absolute 1.76 #; Lymphocytes # 0.4 10*3/uL (1.4-4.0); Lymphocytes % 1.3 % (21.2-54.2); Mean Corpuscular HGB Conc 32.8 GM/DL (32-36); Mean Corpuscular Volume 97.8 FL (87-102); Mean Platelet Volume 13.3 FL (9.6-12.0); NRBC # 0.76 10*3/uL; Neutrophils % 86.1 % (38.7-73.9); Platelet Count 163 T/CUMM (130-400); Red Blood Count 2.77 MC/CUMM (3.8-5.5); Red Cell Distribution Width 19.2 % (9.3-17.3); White Blood Count 32.7 T/CUMM (4-12)
[2020-12-07 04:37] LABS: Band Neutrophils 1 % (0-10); Lymphocytes 1 % (20-55); Nucleated Red Blood Cells 4 (0-5); Segmented Neutrophils 96 % (50-85); Total Cells Counted 100
[2020-12-07 04:38] LABS: Hypochromasia Slight; Microcytosis 1+; Ovalocytes Slight; Platelet Estimate Adequate
[2020-12-07 05:08] LABS: Calcium 7.4 MG/DL (8.5-10.1); Osmolality,Calculated 327.5 MOS/KG (273-304)
[2020-12-07 05:10] LABS: Potassium 6.2 MMOL/L (3.5-5.1)
[2020-12-07] MEDS ORDERED: SODIUM POLYSTYRENE SULFATE 15 GM/60 ML BOTTLE PO ONE ×2 (05:50→08:18)
[2020-12-07] MEDS: NOREPINEPHRINE 8 MG in SODIUM CHLORIDE 0.9% 242 ML IV PRN (07:00)
[2020-12-07] MEDS ORDERED: INSULIN REGULAR 10 UNIT, CALCIUM GLUCONATE 1,000 MG in DEXTROSE 10% 250 ML IV ONE (08:17)
[2020-12-07] MEDS: DEXAMETHASONE 4 MG/1 ML VIAL IV SCH (08:19)
[2020-12-07] MEDS: AMIODARONE 200 MG TABLET PO SCH ×2 (08:19→20:45)
[2020-12-07] MEDS: ASPIRIN CHEW 81 MG TABLET PO SCH (08:19)
[2020-12-07] MEDS: ZINC GLUCONATE 50 MG TABLET PO SCH (08:20)
[2020-12-07] MEDS: METOPROLOL TARTRATE 25 MG TABLET PO SCH ×3 (08:20→21:36)
[2020-12-07] MEDS: CHOLECALCIFEROL 1,000 UNIT TABLET PO SCH (08:20)
[2020-12-07] MEDS: ASCORBIC ACID 500 MG TABLET PO SCH ×2 (08:20→20:44)
[2020-12-07] MEDS: FAMOTIDINE 20 MG/2 ML VIAL IV SCH (09:24)
[2020-12-07] MEDS: fentaNYL INJ 2,500 MCG in SODIUM CHLORIDE 0.9% 75 ML IV PRN (12:20)
[2020-12-07] MEDS: HEPARIN 5,000 UNIT/1 ML VIAL SUBCUT SCH ×2 (13:30→20:44)
[2020-12-07] MEDS ORDERED: VANCOMYCIN INJ 1,000 MG in SODIUM CHLORIDE 0.9% 250 ML IV PRN (14:00)
[2020-12-07] MEDS: FAT EMULSION 20% 250 ML IV SCH (14:53)
[2020-12-07] MEDS: MEROPENEM 500 MG in SODIUM CHLORIDE 0.9% 100 ML IV SCH (16:31)
[2020-12-07] MEDS ORDERED: VANCOMYCIN INJ 2,000 MG in SODIUM CHLORIDE 0.9% 500 ML IV ONE (17:00)
[2020-12-07] MEDS: METOCLOPRAMIDE 10 MG/2 ML VIAL IV SCH (17:21)
[2020-12-07 18:21] LABS: Albumin 2.4 G/DL (3.4-5.0); Calcium 8.5 MG/DL (8.5-10.1); Osmolality,Calculated 303.5 MOS/KG (273-304); Potassium 4.2 MMOL/L (3.5-5.1)
[2020-12-07] MEDS: INSULIN GLARGINE 100 UNIT/ML SUBCUT SCH (20:43)
[2020-12-07] MEDS ORDERED: DEXTROSE 50% 25 GM/50 ML VIAL IV PRN (22:11)
[2020-12-08] MEDS: METOCLOPRAMIDE 10 MG/2 ML VIAL IV SCH ×5 (00:04→23:25)
[2020-12-08] MEDS: INSULIN REGULAR 100 UNIT/ML SUBCUT SCH ×11 (00:07→23:24)
[2020-12-08] MEDS: ALUMINUM/MAGNES/SIMETH MAX STR 30 ML UDCUP PO SCH ×7 (00:08→23:30)
[2020-12-08 04:26] LABS: ABG Base Excess -8.7 MMOL/L (-2.5-2.5); ABG HCO3 17.3 MMOL/L (20-26); ABG Oxygen Saturation 96.8 % (95-100); ABG PCO2 43.9 MM HG (35-48); ABG PO2 98.8 MM HG (80-95); ABG TCO2 17.5 MMOL/L (23-27)
[2020-12-08 04:44] LABS: Basophils % 0.1 % (0.0-0.8); Hematocrit 23.8 VOL% (42.0-52.0); Hemoglobin 7.8 GM/DL (14.0-18.0); Immature Granulocytes % 2.9 %; Immature Granulocytes Absolute 0.62 #; Lymphocytes # 0.4 10*3/uL (1.4-4.0); Lymphocytes % 1.8 % (21.2-54.2); Mean Corpuscular HGB Conc 32.8 GM/DL (32-36); Mean Corpuscular Volume 97.5 FL (87-102); Mean Platelet Volume 14.1 FL (9.6-12.0); NRBC # 0.23 10*3/uL; Neutrophils % 89.2 % (38.7-73.9); Red Blood Count 2.44 MC/CUMM (3.8-5.5)
[2020-12-08] MEDS ORDERED: propofoL 200 MG/20 ML VIAL IV ONE ×2 (04:44→04:50)
[2020-12-08] MEDS ORDERED: VECURONIUM 10 MG VIAL IV ONE ×2 (04:44→04:51)
[2020-12-08 04:46] LABS: Platelet Count 63 T/CUMM (130-400); White Blood Count 21.7 T/CUMM (4-12)
[2020-12-08 05:08] LABS: Lymphocytes 2 % (20-55); Nucleated Red Blood Cells 1 (0-5); Platelet Estimate Decreased; Segmented Neutrophils 91 % (50-85); Total Cells Counted 100
[2020-12-08 05:09] LABS: Hypochromasia Slight; Microcytosis Slight
[2020-12-08] MEDS: DEXTROSE 5% 1,000 ML IV SCH (05:30)
[2020-12-08] MEDS: HEPARIN 5,000 UNIT/1 ML VIAL SUBCUT SCH ×3 (06:05→20:34)
[2020-12-08] MEDS: AMIODARONE 200 MG TABLET PO SCH ×2 (08:05→20:33)
[2020-12-08] MEDS: ASCORBIC ACID 500 MG TABLET PO SCH ×2 (08:05→20:33)
[2020-12-08] MEDS: METOPROLOL TARTRATE 25 MG TABLET PO SCH ×2 (08:05→20:33)
[2020-12-08] MEDS: ASPIRIN CHEW 81 MG TABLET PO SCH (08:05)
[2020-12-08] MEDS: CHOLECALCIFEROL 1,000 UNIT TABLET PO SCH (08:05)
[2020-12-08] MEDS: ZINC GLUCONATE 50 MG TABLET PO SCH (08:05)
[2020-12-08] MEDS: FAMOTIDINE 20 MG/2 ML VIAL IV SCH (11:18)
[2020-12-08] MEDS: MEROPENEM 500 MG in SODIUM CHLORIDE 0.9% 100 ML IV SCH (15:20)
[2020-12-09] MEDS: DEXTROSE 5% 1,000 ML IV SCH ×2 (00:38→23:12)
[2020-12-09 03:31] LABS: ABG Base Excess -10.1 MMOL/L (-2.5-2.5); ABG HCO3 16.9 MMOL/L (20-26); ABG PH 7.222 (7.35-7.45); ABG PO2 72.4 MM HG (80-95); ABG TCO2 18.2 MMOL/L (23-27)
[2020-12-09 03:43] LABS: Basophils % 0.1 % (0.0-0.8); Hematocrit 24.7 VOL% (42.0-52.0); Hemoglobin 8.3 GM/DL (14.0-18.0); Immature Granulocytes % 1.7 %; Immature Granulocytes Absolute 0.41 #; Lymphocytes # 0.3 10*3/uL (1.4-4.0); Lymphocytes % 1.2 % (21.2-54.2); Mean Corpuscular HGB Conc 33.6 GM/DL (32-36); Mean Corpuscular Volume 95.4 FL (87-102); Mean Platelet Volume 14.1 FL (9.6-12.0); Monocytes % 4.6 % (1.7-12.7); NRBC # 0.19 10*3/uL; Neutrophils % 92.4 % (38.7-73.9); Platelet Count 59 T/CUMM (130-400); Red Blood Count 2.59 MC/CUMM (3.8-5.5); White Blood Count 24.6 T/CUMM (4-12)
[2020-12-09 04:01] LABS: Albumin 1.9 G/DL (3.4-5.0); Bilirubin,Total 0.6 MG/DL (0.20-1.00); Calcium 7.5 MG/DL (8.5-10.1); Osmolality,Calculated 322.5 MOS/KG (273-304); Potassium 5.4 MMOL/L (3.5-5.1); Total Protein 4.8 G/DL (6.4-8.2)
[2020-12-09 04:04] LABS: Nucleated Red Blood Cells 3 (0-5); Platelet Estimate Decreased; Segmented Neutrophils 97 % (50-85); Total Cells Counted 100
[2020-12-09] MEDS: INSULIN REGULAR 100 UNIT/ML SUBCUT SCH ×7 (04:04→23:47)
[2020-12-09] MEDS: HEPARIN 5,000 UNIT/1 ML VIAL SUBCUT SCH (04:04)
[2020-12-09 04:05] LABS: Hypochromasia 1+; Microcytosis 1+
[2020-12-09] MEDS: ALUMINUM/MAGNES/SIMETH MAX STR 30 ML UDCUP PO SCH ×6 (04:28→23:48)
[2020-12-09] MEDS: METOCLOPRAMIDE 10 MG/2 ML VIAL IV SCH ×4 (05:32→23:47)
[2020-12-09] MEDS: ASPIRIN CHEW 81 MG TABLET PO SCH (08:14)
[2020-12-09] MEDS: AMIODARONE 200 MG TABLET PO SCH ×2 (08:14→20:43)
[2020-12-09] MEDS: CHOLECALCIFEROL 1,000 UNIT TABLET PO SCH (08:14)
[2020-12-09] MEDS: METOPROLOL TARTRATE 25 MG TABLET PO SCH ×2 (08:14→20:43)
[2020-12-09] MEDS: ASCORBIC ACID 500 MG TABLET PO SCH ×2 (08:14→20:43)
[2020-12-09] MEDS: ZINC GLUCONATE 50 MG TABLET PO SCH (08:14)
[2020-12-09] MEDS: fentaNYL INJ 2,500 MCG in SODIUM CHLORIDE 0.9% 75 ML IV PRN (08:45)
[2020-12-09] MEDS: FAMOTIDINE 20 MG/2 ML VIAL IV SCH (09:12)
[2020-12-09] MEDS ORDERED: VANCOMYCIN INJ 1,000 MG in SODIUM CHLORIDE 0.9% 250 ML IV ONE (12:00)
[2020-12-09] MEDS: MEROPENEM 500 MG in SODIUM CHLORIDE 0.9% 100 ML IV SCH (14:47)
[2020-12-10 03:52] LABS: ABG Base Excess -8.1 MMOL/L (-2.5-2.5); ABG HCO3 19.1 MMOL/L (20-26); ABG Oxygen Saturation 92.2 % (95-100); ABG PCO2 47.3 MM HG (35-48); ABG PH 7.224 (7.35-7.45); ABG PO2 79.7 MM HG (80-95); ABG TCO2 20.6 MMOL/L (23-27); Allen Test Positive; Pt O2 Delivery Device Ventilator
[2020-12-10 05:15] LABS: Basophils % 0.1 % (0.0-0.8); Hematocrit 23.5 VOL% (42.0-52.0); Hemoglobin 7.9 GM/DL (14.0-18.0); Immature Granulocytes % 1.4 %; Immature Granulocytes Absolute 0.31 #; Lymphocytes # 0.2 10*3/uL (1.4-4.0); Lymphocytes % 0.8 % (21.2-54.2); Mean Corpuscular HGB Conc 33.6 GM/DL (32-36); Mean Corpuscular Volume 96.3 FL (87-102); Mean Platelet Volume 14.5 FL (9.6-12.0); Monocytes % 2.4 % (1.7-12.7); NRBC # 0.09 10*3/uL; Neutrophils % 95.3 % (38.7-73.9); Red Blood Count 2.44 MC/CUMM (3.8-5.5); Red Cell Distribution Width 20.1 % (9.3-17.3); White Blood Count 22.4 T/CUMM (4-12)
[2020-12-10 05:18] LABS: Platelet Count 44 T/CUMM (130-400)
[2020-12-10] MEDS: fentaNYL INJ 2,500 MCG in SODIUM CHLORIDE 0.9% 75 ML IV PRN (05:39)
[2020-12-10] MEDS: INSULIN REGULAR 100 UNIT/ML SUBCUT SCH ×5 (05:40→22:22)
[2020-12-10] MEDS: METOCLOPRAMIDE 10 MG/2 ML VIAL IV SCH ×3 (05:40→17:41)
[2020-12-10] MEDS: ALUMINUM/MAGNES/SIMETH MAX STR 30 ML UDCUP PO SCH ×5 (05:40→20:13)
[2020-12-10 05:43] LABS: Hypochromasia 1+; Lymphocytes 1 % (20-55); Microcytosis 1+; Platelet Estimate Decreased; Segmented Neutrophils 97 % (50-85); Total Cells Counted 100
[2020-12-10 05:53] LABS: Calcium 7.8 MG/DL (8.5-10.1); Osmolality,Calculated 307.7 MOS/KG (273-304); Potassium 5.6 MMOL/L (3.5-5.1)
[2020-12-10] MEDS: ZINC GLUCONATE 50 MG TABLET PO SCH (09:04)
[2020-12-10] MEDS: CHOLECALCIFEROL 1,000 UNIT TABLET PO SCH (09:04)
[2020-12-10] MEDS: METOPROLOL TARTRATE 25 MG TABLET PO SCH ×2 (09:04→20:13)
[2020-12-10] MEDS: ASCORBIC ACID 500 MG TABLET PO SCH ×2 (09:04→20:14)
[2020-12-10] MEDS: ASPIRIN CHEW 81 MG TABLET PO SCH (09:04)
[2020-12-10] MEDS: AMIODARONE 200 MG TABLET PO SCH ×2 (09:05→20:14)
[2020-12-10] MEDS: FAMOTIDINE 20 MG/2 ML VIAL IV SCH (09:05)
[2020-12-10] MEDS: MICAFUNGIN 100 MG in SODIUM CHLORIDE 0.9% 100 ML IV SCH (10:51)
[2020-12-10] MEDS ORDERED: SODIUM ZIRCONIUM CYCLOSILICATE 10 GM PACK PO ONE (12:00)
[2020-12-10] MEDS: MEROPENEM 500 MG in SODIUM CHLORIDE 0.9% 100 ML IV SCH (14:30)
[2020-12-11] MEDS: ALUMINUM/MAGNES/SIMETH MAX STR 30 ML UDCUP PO SCH ×6 (01:20→21:42)
[2020-12-11] MEDS: METOCLOPRAMIDE 10 MG/2 ML VIAL IV SCH ×4 (01:20→17:58)
[2020-12-11] MEDS: INSULIN REGULAR 100 UNIT/ML SUBCUT SCH ×6 (02:10→20:32)
[2020-12-11 04:34] LABS: ABG Base Excess -7.1 MMOL/L (-2.5-2.5); ABG HCO3 18.5 MMOL/L (20-26); ABG Oxygen Saturation 89.1 % (95-100); ABG PCO2 44.6 MM HG (35-48); ABG PH 7.254 (7.35-7.45); ABG PO2 66.7 MM HG (80-95); ABG TCO2 18.7 MMOL/L (23-27); Allen Test Positive; Pt O2 Delivery Device Ventilator
[2020-12-11 05:04] LABS: Basophils % 0.1 % (0.0-0.8); Eosinophils % 0.1 % (0.00-10.9); Hematocrit 22.7 VOL% (42.0-52.0); Hemoglobin 7.4 GM/DL (14.0-18.0); Immature Granulocytes % 1.5 %; Immature Granulocytes Absolute 0.27 #; Lymphocytes # 0.1 10*3/uL (1.4-4.0); Lymphocytes % 0.6 % (21.2-54.2); Mean Corpuscular HGB Conc 32.6 GM/DL (32-36); Mean Corpuscular Volume 98.7 FL (87-102); Mean Platelet Volume 14.6 FL (9.6-12.0); Monocytes % 1.7 % (1.7-12.7); NRBC # 0.08 10*3/uL; Platelet Count 47 T/CUMM (130-400); Red Cell Distribution Width 19.9 % (9.3-17.3)
[2020-12-11 05:19] LABS: Ferritin 931.8 ng/mL (26-388)
[2020-12-11] MEDS: fentaNYL INJ 2,500 MCG in SODIUM CHLORIDE 0.9% 75 ML IV PRN (05:25)
[2020-12-11 05:48] LABS: Albumin 1.7 G/DL (3.4-5.0); Bilirubin,Total 1.4 MG/DL (0.20-1.00); Calcium 8.2 MG/DL (8.5-10.1); Osmolality,Calculated 310.9 MOS/KG (273-304); Total Protein 4.5 G/DL (6.4-8.2)
[2020-12-11 05:51] LABS: Potassium 6.4 MMOL/L (3.5-5.1)
[2020-12-11 07:10] LABS: Band Neutrophils 2 % (0-10); Eosinophils 1 % (0-10); Lymphocytes 2 % (20-55); Nucleated Red Blood Cells 1 (0-5); Platelet Estimate Decreased; Segmented Neutrophils 95 % (50-85); Total Cells Counted 100
[2020-12-11 07:11] LABS: Hypochromasia Slight
[2020-12-11] MEDS: METOPROLOL TARTRATE 25 MG TABLET PO SCH ×2 (08:29→21:42)
[2020-12-11] MEDS: ASCORBIC ACID 500 MG TABLET PO SCH ×2 (08:29→21:38)
[2020-12-11] MEDS: ZINC GLUCONATE 50 MG TABLET PO SCH (08:29)
[2020-12-11] MEDS: CHOLECALCIFEROL 1,000 UNIT TABLET PO SCH (08:29)
[2020-12-11] MEDS: ASPIRIN CHEW 81 MG TABLET PO SCH (08:30)
[2020-12-11] MEDS: AMIODARONE 200 MG TABLET PO SCH ×2 (08:32→21:37)
[2020-12-11] MEDS: MICAFUNGIN 100 MG in SODIUM CHLORIDE 0.9% 100 ML IV SCH (08:40)
[2020-12-11] MEDS: FAMOTIDINE 20 MG/2 ML VIAL IV SCH (09:40)
[2020-12-11] MEDS: NOREPINEPHRINE 8 MG in SODIUM CHLORIDE 0.9% 242 ML IV PRN (10:03)
[2020-12-11] MEDS ORDERED: SODIUM CHLORIDE 0.9% 1,000 ML IV PRN (11:50)
[2020-12-11] MEDS: MEROPENEM 500 MG in SODIUM CHLORIDE 0.9% 100 ML IV SCH (14:15)
[2020-12-11] MEDS: methylPREDNISolone SOD SUC 40 MG/1 ML VIAL IV SCH (14:20)
[2020-12-11 15:05] LABS: Calcium 7.7 MG/DL (8.5-10.1); Osmolality,Calculated 302.2 MOS/KG (273-304); Potassium 5.5 MMOL/L (3.5-5.1)
[2020-12-12] MEDS: INSULIN REGULAR 100 UNIT/ML SUBCUT SCH ×6 (00:35→20:45)
[2020-12-12] MEDS: METOCLOPRAMIDE 10 MG/2 ML VIAL IV SCH ×4 (00:35→18:20)
[2020-12-12] MEDS: ALUMINUM/MAGNES/SIMETH MAX STR 30 ML UDCUP PO SCH ×6 (00:35→20:45)
[2020-12-12] MEDS: fentaNYL INJ 2,500 MCG in SODIUM CHLORIDE 0.9% 75 ML IV PRN ×2 (01:02→08:50)
[2020-12-12] MEDS: methylPREDNISolone SOD SUC 40 MG/1 ML VIAL IV SCH ×2 (01:59→13:47)
[2020-12-12 04:40] LABS: ABG Base Excess -3.8 MMOL/L (-2.5-2.5); ABG HCO3 21.2 MMOL/L (20-26); ABG Oxygen Saturation 94.4 % (95-100); ABG PCO2 46.3 MM HG (35-48); ABG PH 7.296 (7.35-7.45); ABG PO2 78.4 MM HG (80-95); ABG TCO2 21.3 MMOL/L (23-27)
[2020-12-12 04:41] LABS: Allen Test Positive; Pt O2 Delivery Device Ventilator
[2020-12-12 04:42] LABS: Basophils % 0.1 % (0.0-0.8); Hematocrit 22.4 VOL% (42.0-52.0); Hemoglobin 7.4 GM/DL (14.0-18.0); Immature Granulocytes % 1.3 %; Immature Granulocytes Absolute 0.18 #; Lymphocytes # 0.1 10*3/uL (1.4-4.0); Lymphocytes % 0.4 % (21.2-54.2); Mean Corpuscular Volume 97.4 FL (87-102); NRBC # 0.03 10*3/uL; Neutrophils % 97.2 % (38.7-73.9); Red Cell Distribution Width 19.1 % (9.3-17.3); White Blood Count 13.4 T/CUMM (4-12)
[2020-12-12 05:21] LABS: Platelet Count 45 T/CUMM (130-400)
[2020-12-12 05:23] LABS: Albumin 1.6 G/DL (3.4-5.0); Bilirubin,Total 0.6 MG/DL (0.20-1.00); Calcium 7.9 MG/DL (8.5-10.1); Osmolality,Calculated 308.5 MOS/KG (273-304); Total Protein 4.5 G/DL (6.4-8.2)
[2020-12-12 05:34] LABS: Potassium 6.2 MMOL/L (3.5-5.1)
[2020-12-12] MEDS ORDERED: SODIUM POLYSTYRENE SULFATE 15 GM/60 ML BOTTLE PO ONE (05:43)
[2020-12-12] MEDS ORDERED: INSULIN REGULAR 10 UNIT, CALCIUM GLUCONATE 1,000 MG in DEXTROSE 10% 250 ML IV ONE ×3 (05:43→17:00)
[2020-12-12 06:59] LABS: Band Neutrophils 14 % (0-10); Platelet Estimate Decreased; Segmented Neutrophils 86 % (50-85); Total Cells Counted 100
[2020-12-12 07:00] LABS: Anisocytosis 2+; Basophilic Stippling Slight; Macrocytosis Slight; Smudge Cells Few
[2020-12-12] MEDS: MICAFUNGIN 100 MG in SODIUM CHLORIDE 0.9% 100 ML IV SCH (08:33)
[2020-12-12] MEDS: ZINC GLUCONATE 50 MG TABLET PO SCH (08:35)
[2020-12-12] MEDS: METOPROLOL TARTRATE 25 MG TABLET PO SCH ×2 (08:35→20:45)
[2020-12-12] MEDS: AMIODARONE 200 MG TABLET PO SCH ×2 (08:36→20:45)
[2020-12-12] MEDS: CHOLECALCIFEROL 1,000 UNIT TABLET PO SCH (08:36)
[2020-12-12] MEDS: ASPIRIN CHEW 81 MG TABLET PO SCH (08:37)
[2020-12-12] MEDS: ASCORBIC ACID 500 MG TABLET PO SCH ×2 (08:37→20:45)
[2020-12-12] MEDS: MIDAZOLAM 100 MG in SODIUM CHLORIDE 0.9% 80 ML IV PRN (08:44)
[2020-12-12] MEDS: FAMOTIDINE 20 MG/2 ML VIAL IV SCH (10:05)
[2020-12-12] MEDS: fentaNYL INJ 5,000 MCG in SODIUM CHLORIDE 0.9% 150 ML IV PRN (11:00)
[2020-12-12] MEDS: SODIUM ZIRCONIUM CYCLOSILICATE 10 GM PACK PO SCH ×2 (16:30→21:27)
[2020-12-12] MEDS ORDERED: INSULIN GLARGINE 100 UNIT/ML SUBCUT SCH (21:00)
[2020-12-13] MEDS: METOCLOPRAMIDE 10 MG/2 ML VIAL IV SCH ×4 (00:33→18:48)
[2020-12-13] MEDS: ALUMINUM/MAGNES/SIMETH MAX STR 30 ML UDCUP PO SCH ×6 (00:33→20:46)
[2020-12-13] MEDS: fentaNYL INJ 5,000 MCG in SODIUM CHLORIDE 0.9% 150 ML IV PRN ×2 (01:05→16:03)
[2020-12-13] MEDS: INSULIN REGULAR 100 UNIT/ML SUBCUT SCH ×6 (01:07→20:46)
[2020-12-13] MEDS: methylPREDNISolone SOD SUC 40 MG/1 ML VIAL IV SCH ×2 (01:20→13:17)
[2020-12-13 04:37] LABS: Basophils % 0.1 % (0.0-0.8); Hematocrit 26.4 VOL% (42.0-52.0); Hemoglobin 8.5 GM/DL (14.0-18.0); Immature Granulocytes % 0.8 %; Immature Granulocytes Absolute 0.13 #; Lymphocytes # 0.1 10*3/uL (1.4-4.0); Lymphocytes % 0.4 % (21.2-54.2); Mean Corpuscular HGB Conc 32.2 GM/DL (32-36); Mean Corpuscular Volume 97.8 FL (87-102); Mean Platelet Volume 13.7 FL (9.6-12.0); Monocytes % 1.3 % (1.7-12.7); NRBC # 0.02 10*3/uL; Neutrophils % 97.4 % (38.7-73.9); Red Cell Distribution Width 18.4 % (9.3-17.3); White Blood Count 15.6 T/CUMM (4-12)
[2020-12-13 04:39] LABS: Platelet Count 65 T/CUMM (130-400)
[2020-12-13 05:01] LABS: ABG Base Excess -5.2 MMOL/L (-2.5-2.5); ABG HCO3 20.1 MMOL/L (20-26); ABG Oxygen Saturation 94.3 % (95-100); ABG PCO2 47.2 MM HG (35-48); ABG PO2 81.1 MM HG (80-95); ABG TCO2 20.3 MMOL/L (23-27); Allen Test Positive; Pt O2 Delivery Device Ventilator
[2020-12-13 05:11] LABS: Hypochromasia 1+; Microcytosis 1+; Platelet Estimate Decreased; Segmented Neutrophils 99 % (50-85); Total Cells Counted 100
[2020-12-13 05:12] LABS: Albumin 1.7 G/DL (3.4-5.0); Bilirubin,Total 0.7 MG/DL (0.20-1.00); Calcium 8.4 MG/DL (8.5-10.1); Osmolality,Calculated 306.8 MOS/KG (273-304); Total Protein 4.8 G/DL (6.4-8.2)
[2020-12-13 05:21] LABS: Potassium 6.6 MMOL/L (3.5-5.1)
[2020-12-13] MEDS ORDERED: SODIUM BICARBONATE 50 MEQ/50 ML VIAL IV ONE (05:24)
[2020-12-13] MEDS ORDERED: INSULIN REGULAR 10 UNIT, CALCIUM GLUCONATE 1,000 MG in DEXTROSE 10% 250 ML IV ONE (05:24)
[2020-12-13] MEDS: AMIODARONE 200 MG TABLET PO SCH ×2 (09:22→20:46)
[2020-12-13] MEDS: ZINC GLUCONATE 50 MG TABLET PO SCH (09:22)
[2020-12-13] MEDS: ASCORBIC ACID 500 MG TABLET PO SCH ×2 (09:22→20:46)
[2020-12-13] MEDS: FAMOTIDINE 20 MG/2 ML VIAL IV SCH (09:22)
[2020-12-13] MEDS: METOPROLOL TARTRATE 25 MG TABLET PO SCH ×2 (09:23→20:46)
[2020-12-13] MEDS: ASPIRIN CHEW 81 MG TABLET PO SCH (09:23)
[2020-12-13] MEDS: CHOLECALCIFEROL 1,000 UNIT TABLET PO SCH (09:23)
[2020-12-13] MEDS: SODIUM ZIRCONIUM CYCLOSILICATE 10 GM PACK PO SCH ×3 (09:30→21:02)
[2020-12-13] MEDS: MICAFUNGIN 100 MG in SODIUM CHLORIDE 0.9% 100 ML IV SCH (09:30)
[2020-12-13] MEDS: NOREPINEPHRINE 8 MG in SODIUM CHLORIDE 0.9% 242 ML IV PRN (11:51)
[2020-12-13] MEDS ORDERED: ALBUMIN 5% 25 GM/500 ML VIAL IV ONE (22:49)
[2020-12-13] MEDS: PHENYLEPHRINE DRIP 40 MG/250 ML PREMIX IV PRN (23:00)
[2020-12-13 23:14] LABS: Basophils % 0.1 % (0.0-0.8); Hematocrit 24.1 VOL% (42.0-52.0); Hemoglobin 7.6 GM/DL (14.0-18.0); Immature Granulocytes % 1.2 %; Immature Granulocytes Absolute 0.13 #; Lymphocytes # 0.1 10*3/uL (1.4-4.0); Lymphocytes % 0.8 % (21.2-54.2); Mean Corpuscular HGB Conc 31.5 GM/DL (32-36); Mean Corpuscular Volume 99.6 FL (87-102); Mean Platelet Volume 13.6 FL (9.6-12.0); Monocytes % 2.1 % (1.7-12.7); NRBC # 0.02 10*3/uL; Neutrophils % 95.8 % (38.7-73.9); Platelet Count 57 T/CUMM (130-400); Red Blood Count 2.42 MC/CUMM (3.8-5.5); Red Cell Distribution Width 17.8 % (9.3-17.3); White Blood Count 10.9 T/CUMM (4-12)
[2020-12-13 23:29] LABS: Calcium 7.6 MG/DL (8.5-10.1); Osmolality,Calculated 307.2 MOS/KG (273-304); Potassium 5.5 MMOL/L (3.5-5.1)
[2020-12-13 23:34] LABS: Band Neutrophils 3 % (0-10); Platelet Estimate Decreased; Segmented Neutrophils 97 % (50-85)
[2020-12-13 23:35] LABS: Hypochromasia Slight; Total Cells Counted 100
[2020-12-14] MEDS: INSULIN REGULAR 100 UNIT/ML SUBCUT SCH ×6 (00:49→20:35)
[2020-12-14] MEDS: METOCLOPRAMIDE 10 MG/2 ML VIAL IV SCH ×4 (00:49→18:48)
[2020-12-14] MEDS: ALUMINUM/MAGNES/SIMETH MAX STR 30 ML UDCUP PO SCH ×6 (00:49→20:33)
[2020-12-14] MEDS: methylPREDNISolone SOD SUC 40 MG/1 ML VIAL IV SCH ×2 (00:50→16:09)
[2020-12-14 04:05] LABS: Allen Test Positive; Pt O2 Delivery Device Ventilator
[2020-12-14 04:12] LABS: Hematocrit 25.5 VOL% (42.0-52.0); Hemoglobin 8.2 GM/DL (14.0-18.0); Immature Granulocytes % 0.7 %; Immature Granulocytes Absolute 0.09 #; Lymphocytes # 0.1 10*3/uL (1.4-4.0); Lymphocytes % 0.6 % (21.2-54.2); Mean Corpuscular HGB Conc 32.2 GM/DL (32-36); Mean Corpuscular Volume 97.7 FL (87-102); Mean Platelet Volume 13.2 FL (9.6-12.0); Monocytes % 1.4 % (1.7-12.7); Neutrophils % 97.3 % (38.7-73.9); Platelet Count 65 T/CUMM (130-400); Red Blood Count 2.61 MC/CUMM (3.8-5.5); Red Cell Distribution Width 17.8 % (9.3-17.3); White Blood Count 13.2 T/CUMM (4-12)
[2020-12-14 04:15] LABS: ABG Base Excess -2.6 MMOL/L (-2.5-2.5); ABG HCO3 22.2 MMOL/L (20-26); ABG Oxygen Saturation 97.8 % (95-100); ABG PCO2 48.6 MM HG (35-48); ABG PH 7.301 (7.35-7.45); ABG TCO2 22.4 MMOL/L (23-27)
[2020-12-14 04:20] LABS: INR 1.1; PT Patient Result 11.8 SECS (10.5-12.0); Partial Thromboplastin Time 40.7 SECS (23.9-33.8)
[2020-12-14 04:33] LABS: Albumin 1.9 G/DL (3.4-5.0); Bilirubin,Total 0.7 MG/DL (0.20-1.00); Calcium 7.8 MG/DL (8.5-10.1); Osmolality,Calculated 307.2 MOS/KG (273-304); Potassium 5.7 MMOL/L (3.5-5.1); Total Protein 4.8 G/DL (6.4-8.2)
[2020-12-14 04:37] LABS: Band Neutrophils 1 % (0-10); Lymphocytes 1 % (20-55); Platelet Estimate Decreased; Total Cells Counted 100
[2020-12-14 04:38] LABS: Segmented Neutrophils 97 % (50-85)
[2020-12-14] MEDS ORDERED: SODIUM POLYSTYRENE SULFATE 15 GM/60 ML BOTTLE PO ONE (06:18)
[2020-12-14] MEDS ORDERED: SODIUM POLYSTYRENE SULFATE 15 GM/60 ML BOTTLE ONE (06:22)
[2020-12-14] MEDS: CHOLECALCIFEROL 1,000 UNIT TABLET PO SCH (08:18)
[2020-12-14] MEDS: ASPIRIN CHEW 81 MG TABLET PO SCH (08:18)
[2020-12-14] MEDS: ASCORBIC ACID 500 MG TABLET PO SCH ×2 (08:19→20:35)
[2020-12-14] MEDS: ZINC GLUCONATE 50 MG TABLET PO SCH (08:20)
[2020-12-14] MEDS: METOPROLOL TARTRATE 25 MG TABLET PO SCH ×2 (08:21→20:34)
[2020-12-14] MEDS: SODIUM ZIRCONIUM CYCLOSILICATE 10 GM PACK PO SCH (08:28)
[2020-12-14] MEDS: AMIODARONE 200 MG TABLET PO SCH ×2 (08:28→20:34)
[2020-12-14] MEDS: MICAFUNGIN 100 MG in SODIUM CHLORIDE 0.9% 100 ML IV SCH (09:28)
[2020-12-14] MEDS: FAMOTIDINE 20 MG/2 ML VIAL IV SCH (09:28)
[2020-12-14] MEDS: fentaNYL INJ 5,000 MCG in SODIUM CHLORIDE 0.9% 150 ML IV PRN ×2 (18:48→20:40)
[2020-12-14] MEDS: MORPHINE 2 MG/1 ML SYRINGE IV PRN (20:34)
[2020-12-15] MEDS: INSULIN REGULAR 100 UNIT/ML SUBCUT SCH ×6 (00:49→21:01)
[2020-12-15] MEDS: METOCLOPRAMIDE 10 MG/2 ML VIAL IV SCH ×4 (00:50→17:15)
[2020-12-15] MEDS: methylPREDNISolone SOD SUC 40 MG/1 ML VIAL IV SCH ×2 (00:50→13:21)
[2020-12-15] MEDS: ALUMINUM/MAGNES/SIMETH MAX STR 30 ML UDCUP PO SCH ×6 (00:50→21:01)
[2020-12-15] MEDS ORDERED: MORPHINE 2 MG/1 ML SYRINGE ONE (02:46)
[2020-12-15] MEDS: MORPHINE 2 MG/1 ML SYRINGE IV PRN (02:48)
[2020-12-15 04:27] LABS: Basophils % 0.1 % (0.0-0.8); Hematocrit 24.7 VOL% (42.0-52.0); Hemoglobin 7.8 GM/DL (14.0-18.0); Immature Granulocytes % 0.7 %; Immature Granulocytes Absolute 0.07 #; Lymphocytes # 0.1 10*3/uL (1.4-4.0); Lymphocytes % 0.7 % (21.2-54.2); Mean Corpuscular HGB Conc 31.6 GM/DL (32-36); Mean Platelet Volume 13.7 FL (9.6-12.0); Monocytes % 1.2 % (1.7-12.7); Neutrophils % 97.3 % (38.7-73.9); Platelet Count 55 T/CUMM (130-400); Red Blood Count 2.52 MC/CUMM (3.8-5.5); Red Cell Distribution Width 17.3 % (9.3-17.3)
[2020-12-15 04:27] LABS: ABG Base Excess -2.6 MMOL/L (-2.5-2.5); ABG HCO3 22.3 MMOL/L (20-26); ABG Oxygen Saturation 98.4 % (95-100); ABG PCO2 44.8 MM HG (35-48); ABG PH 7.325 (7.35-7.45)
[2020-12-15 04:36] LABS: PT Patient Result 10.9 SECS (10.5-12.0); Partial Thromboplastin Time 31.3 SECS (23.9-33.8)
[2020-12-15 04:50] LABS: Band Neutrophils 1 % (0-10); Eosinophils 1 % (0-10); Hypochromasia 1+; Microcytosis 1+; Platelet Estimate Decreased; Segmented Neutrophils 96 % (50-85); Total Cells Counted 100
[2020-12-15 04:52] LABS: Albumin 1.6 G/DL (3.4-5.0); Bilirubin,Total 0.5 MG/DL (0.20-1.00); Calcium 7.2 MG/DL (8.5-10.1); Potassium 5.4 MMOL/L (3.5-5.1); Total Protein 4.5 G/DL (6.4-8.2)
[2020-12-15] MEDS: ASPIRIN CHEW 81 MG TABLET PO SCH (08:10)
[2020-12-15] MEDS: ASCORBIC ACID 500 MG TABLET PO SCH ×2 (08:10→21:01)
[2020-12-15] MEDS: ZINC GLUCONATE 50 MG TABLET PO SCH (08:10)
[2020-12-15] MEDS: CHOLECALCIFEROL 1,000 UNIT TABLET PO SCH (08:10)
[2020-12-15] MEDS: METOPROLOL TARTRATE 25 MG TABLET PO SCH ×2 (08:11→21:01)
[2020-12-15] MEDS: AMIODARONE 200 MG TABLET PO SCH ×2 (08:11→21:01)
[2020-12-15] MEDS: FAMOTIDINE 20 MG/2 ML VIAL IV SCH (10:11)
[2020-12-15] MEDS: MICAFUNGIN 100 MG in SODIUM CHLORIDE 0.9% 100 ML IV SCH (10:26)
[2020-12-15] MEDS: fentaNYL INJ 5,000 MCG in SODIUM CHLORIDE 0.9% 150 ML IV PRN (10:49)
[2020-12-15] MEDS ORDERED: PHENYLEPHRINE DRIP 40 MG/250 ML PREMIX IV PRN (11:19)
[2020-12-15] MEDS: PHENYLEPHRINE DRIP 40 MG/250 ML PREMIX IV PRN (11:28)
[2020-12-16] MEDS: ALUMINUM/MAGNES/SIMETH MAX STR 30 ML UDCUP PO SCH ×6 (00:20→20:56)
[2020-12-16] MEDS: INSULIN REGULAR 100 UNIT/ML SUBCUT SCH ×6 (00:20→20:56)
[2020-12-16] MEDS: METOCLOPRAMIDE 10 MG/2 ML VIAL IV SCH ×4 (00:21→17:29)
[2020-12-16] MEDS: methylPREDNISolone SOD SUC 40 MG/1 ML VIAL IV SCH ×2 (02:24→13:04)
[2020-12-16 04:21] LABS: ABG Base Excess -0.7 MMOL/L (-2.5-2.5); ABG HCO3 24.8 MMOL/L (20-26); ABG Oxygen Saturation 95.3 % (95-100); ABG PCO2 45.3 MM HG (35-48); ABG PH 7.357 (7.35-7.45); ABG PO2 86.1 MM HG (80-95); ABG TCO2 26.2 MMOL/L (23-27)
[2020-12-16 04:51] LABS: Hematocrit 25.4 VOL% (42.0-52.0); Immature Granulocytes % 1.5 %; Immature Granulocytes Absolute 0.14 #; Lymphocytes # 0.2 10*3/uL (1.4-4.0); Lymphocytes % 1.6 % (21.2-54.2); Mean Corpuscular HGB Conc 31.5 GM/DL (32-36); Mean Corpuscular Volume 97.7 FL (87-102); Mean Platelet Volume 13.9 FL (9.6-12.0); Monocytes % 1.1 % (1.7-12.7); NRBC # 0.02 10*3/uL; Neutrophils % 95.8 % (38.7-73.9); Red Cell Distribution Width 17.2 % (9.3-17.3); White Blood Count 9.3 T/CUMM (4-12)
[2020-12-16 05:05] LABS: Platelet Count 50 T/CUMM (130-400)
[2020-12-16 05:24] LABS: Lymphocytes 2 % (20-55); Platelet Estimate Decreased; Segmented Neutrophils 97 % (50-85); Total Cells Counted 100
[2020-12-16 05:25] LABS: Hypochromasia 1+; Microcytosis 1+
[2020-12-16 05:44] LABS: Calcium 7.1 MG/DL (8.5-10.1); Potassium 5.2 MMOL/L (3.5-5.1)
[2020-12-16] MEDS ORDERED: LIDOCAINE 1%/EPI INJ 20 ML VIAL ONE (06:27)
[2020-12-16] MEDS ORDERED: BUPIVACAINE MPF 0.25% 30 ML VIAL ONE (06:27)
[2020-12-16] MEDS ORDERED: HEPARIN 5,000 UNIT/1 ML VIAL ONE (06:27)
[2020-12-16] MEDS: fentaNYL INJ 5,000 MCG in SODIUM CHLORIDE 0.9% 150 ML IV PRN ×2 (06:31→13:49)
[2020-12-16] MEDS ORDERED: fentaNYL 100 MCG/2 ML VIAL ONE (06:40)
[2020-12-16] MEDS ORDERED: MIDAZOLAM 2 MG/2 ML VIAL ONE ×2 (06:40→09:42)
[2020-12-16] MEDS ORDERED: ROCURONIUM 50 MG/5 ML VIAL IV ONE ×2 (06:41→09:41)
[2020-12-16] MEDS ORDERED: CLINDAMYCIN INJ 900 MG/50 ML PREMIX IV ONE (07:00)
[2020-12-16] MEDS: PHENYLEPHRINE DRIP 40 MG/250 ML PREMIX IV PRN (07:28)
[2020-12-16] MEDS ORDERED: SEVOFLURANE 1 UNIT/15 MINUTE INH ONE (09:23)
[2020-12-16] MEDS ORDERED: PHENYLEPHRINE 1 MG/10 ML SYRINGE IV ONE (09:23)
[2020-12-16] MEDS: METOPROLOL TARTRATE 25 MG TABLET PO SCH (09:30)
[2020-12-16] MEDS: ASPIRIN CHEW 81 MG TABLET PO SCH (09:58)
[2020-12-16] MEDS: MICAFUNGIN 100 MG in SODIUM CHLORIDE 0.9% 100 ML IV SCH (10:14)
[2020-12-16] MEDS: FAMOTIDINE 20 MG/2 ML VIAL IV SCH (10:14)
[2020-12-16] MEDS: ASCORBIC ACID 500 MG TABLET PO SCH ×2 (10:15→20:59)
[2020-12-16] MEDS: CHOLECALCIFEROL 1,000 UNIT TABLET PO SCH (10:15)
[2020-12-16] MEDS: ZINC GLUCONATE 50 MG TABLET PO SCH (10:15)
[2020-12-16] MEDS: AMIODARONE 200 MG TABLET PO SCH ×2 (10:15→20:59)
[2020-12-17] MEDS: METOCLOPRAMIDE 10 MG/2 ML VIAL IV SCH ×4 (00:17→17:57)
[2020-12-17] MEDS: INSULIN REGULAR 100 UNIT/ML SUBCUT SCH ×6 (00:17→20:43)
[2020-12-17] MEDS: ALUMINUM/MAGNES/SIMETH MAX STR 30 ML UDCUP PO SCH ×5 (00:17→17:37)
[2020-12-17] MEDS: methylPREDNISolone SOD SUC 40 MG/1 ML VIAL IV SCH ×2 (01:17→13:10)
[2020-12-17] MEDS: PHENYLEPHRINE DRIP 40 MG/250 ML PREMIX IV PRN (03:13)
[2020-12-17] MEDS: fentaNYL INJ 5,000 MCG in SODIUM CHLORIDE 0.9% 150 ML IV PRN (03:14)
[2020-12-17 03:21] LABS: Hematocrit 23.4 VOL% (42.0-52.0); Hemoglobin 7.2 GM/DL (14.0-18.0); Immature Granulocytes % 0.5 %; Immature Granulocytes Absolute 0.03 #; Lymphocytes # 0.1 10*3/uL (1.4-4.0); Lymphocytes % 1.8 % (21.2-54.2); Mean Corpuscular HGB Conc 30.8 GM/DL (32-36); Mean Corpuscular Volume 98.3 FL (87-102); Mean Platelet Volume 14.1 FL (9.6-12.0); Monocytes % 1.4 % (1.7-12.7); Neutrophils % 96.3 % (38.7-73.9); Platelet Count 49 T/CUMM (130-400); Red Blood Count 2.38 MC/CUMM (3.8-5.5); White Blood Count 6.3 T/CUMM (4-12)
[2020-12-17 03:28] LABS: PT Patient Result 11.3 SECS (10.5-12.0)
[2020-12-17 03:36] LABS: ABG Base Excess 0.1 MMOL/L (-2.5-2.5); ABG HCO3 25.2 MMOL/L (20-26); ABG Oxygen Saturation 98.1 % (95-100); ABG PCO2 43.3 MM HG (35-48); ABG PH 7.383 (7.35-7.45); ABG PO2 127.1 MM HG (80-95); ABG TCO2 26.5 MMOL/L (23-27)
[2020-12-17 03:41] LABS: Hypochromasia 1+; Lymphocytes 1 % (20-55); Platelet Estimate Decreased; Segmented Neutrophils 99 % (50-85); Total Cells Counted 100
[2020-12-17 03:42] LABS: Microcytosis 1+
[2020-12-17 04:06] LABS: Calcium 6.6 MG/DL (8.5-10.1); Potassium 4.5 MMOL/L (3.5-5.1)
[2020-12-17] MEDS ORDERED: SODIUM CHLORIDE 0.9% 1,000 ML IV SCH (08:00)
[2020-12-17] MEDS ORDERED: SODIUM CHLORIDE 0.9% 1,000 ML IV PRN (08:16)
[2020-12-17] MEDS: FAMOTIDINE 20 MG/2 ML VIAL IV SCH (10:12)
[2020-12-17] MEDS: ASCORBIC ACID 500 MG TABLET PO SCH ×2 (10:14→20:43)
[2020-12-17] MEDS: AMIODARONE 200 MG TABLET PO SCH ×2 (10:14→20:43)
[2020-12-17] MEDS: ASPIRIN CHEW 81 MG TABLET PO SCH (10:14)
[2020-12-17] MEDS: ZINC GLUCONATE 50 MG TABLET PO SCH (10:14)
[2020-12-17] MEDS: CHOLECALCIFEROL 1,000 UNIT TABLET PO SCH (10:14)
[2020-12-17] MEDS: MICAFUNGIN 100 MG in SODIUM CHLORIDE 0.9% 100 ML IV SCH (10:15)
[2020-12-17 21:16] LABS: HIT Interpretation Positive (Negative)
[2020-12-18] MEDS: methylPREDNISolone SOD SUC 40 MG/1 ML VIAL IV SCH ×2 (00:33→15:49)
[2020-12-18] MEDS: METOCLOPRAMIDE 10 MG/2 ML VIAL IV SCH ×4 (00:33→17:30)
[2020-12-18] MEDS: INSULIN REGULAR 100 UNIT/ML SUBCUT SCH ×6 (00:34→20:45)
[2020-12-18 03:39] LABS: ABG Base Excess 2.4 MMOL/L (-2.5-2.5); ABG HCO3 27.1 MMOL/L (20-26); ABG Oxygen Saturation 95.7 % (95-100); ABG PH 7.418 (7.35-7.45); ABG PO2 86.4 MM HG (80-95); ABG TCO2 28.5 MMOL/L (23-27)
[2020-12-18 04:42] LABS: Hematocrit 18.6 VOL% (42.0-52.0); Immature Granulocytes % 0.8 %; Immature Granulocytes Absolute 0.03 #; Lymphocytes # 0.1 10*3/uL (1.4-4.0); Lymphocytes % 1.6 % (21.2-54.2); Mean Corpuscular HGB Conc 31.7 GM/DL (32-36); Mean Corpuscular Volume 97.9 FL (87-102); Mean Platelet Volume 13.7 FL (9.6-12.0); Monocytes % 2.7 % (1.7-12.7); Neutrophils % 94.9 % (38.7-73.9); Red Cell Distribution Width 16.8 % (9.3-17.3)
[2020-12-18 04:44] LABS: Platelet Count 51 T/CUMM (130-400); White Blood Count 3.7 T/CUMM (4-12)
[2020-12-18 04:45] LABS: Hemoglobin 5.9 GM/DL (14.0-18.0)
[2020-12-18 04:55] LABS: Osmolality,Calculated 311.8 MOS/KG (273-304); Potassium 3.4 MMOL/L (3.5-5.1)
[2020-12-18 04:57] LABS: Calcium 5.7 MG/DL (8.5-10.1)
[2020-12-18 05:10] LABS: Band Neutrophils 4 % (0-10); Hypochromasia Slight; Lymphocytes 1 % (20-55); Microcytosis 1+; Nucleated Red Blood Cells 1 (0-5); Ovalocytes Slight; Platelet Estimate Decreased; Segmented Neutrophils 93 % (50-85); Total Cells Counted 100
[2020-12-18] MEDS ORDERED: CALCIUM GLUCONATE 1,000 MG in SODIUM CHLORIDE 0.9% 100 ML IV ONE (05:18)
[2020-12-18] MEDS: ASCORBIC ACID 500 MG TABLET PO SCH ×2 (09:48→20:44)
[2020-12-18] MEDS: ASPIRIN CHEW 81 MG TABLET PO SCH (09:49)
[2020-12-18] MEDS: AMIODARONE 200 MG TABLET PO SCH ×2 (09:49→20:44)
[2020-12-18] MEDS: ZINC GLUCONATE 50 MG TABLET PO SCH (09:49)
[2020-12-18] MEDS: CHOLECALCIFEROL 1,000 UNIT TABLET PO SCH (09:49)
[2020-12-18] MEDS: FAMOTIDINE 20 MG/2 ML VIAL IV SCH (09:50)
[2020-12-18] MEDS: MICAFUNGIN 100 MG in SODIUM CHLORIDE 0.9% 100 ML IV SCH (12:35)
[2020-12-18 17:29] VITALS: BP 149/73
[2020-12-18] MEDS: MORPHINE 2 MG/1 ML SYRINGE IV PRN ×4 (19:20→23:19)
[2020-12-19] MEDS: INSULIN REGULAR 100 UNIT/ML SUBCUT SCH ×5 (00:41→17:13)
[2020-12-19] MEDS: METOCLOPRAMIDE 10 MG/2 ML VIAL IV SCH ×4 (00:42→17:34)
[2020-12-19] MEDS: methylPREDNISolone SOD SUC 40 MG/1 ML VIAL IV SCH ×2 (03:01→13:40)
[2020-12-19 05:24] LABS: Hematocrit 25.3 VOL% (42.0-52.0); Immature Granulocytes % 0.6 %; Immature Granulocytes Absolute 0.01 #; Lymphocytes # 0.1 10*3/uL (1.4-4.0); Lymphocytes % 6.5 % (21.2-54.2); Mean Corpuscular HGB Conc 32.4 GM/DL (32-36); Mean Corpuscular Volume 94.8 FL (87-102); Mean Platelet Volume 14.1 FL (9.6-12.0); Neutrophils % 86.9 % (38.7-73.9); Platelet Count 42 T/CUMM (130-400)
[2020-12-19 05:39] LABS: Hemoglobin 8.2 GM/DL (14.0-18.0); Red Blood Count 2.67 MC/CUMM (3.8-5.5); White Blood Count 1.7 T/CUMM (4-12)
[2020-12-19 05:41] LABS: Bilirubin,Total 0.6 MG/DL (0.20-1.00); Calcium 6.6 MG/DL (8.5-10.1); Osmolality,Calculated 299.3 MOS/KG (273-304); Total Protein 3.7 G/DL (6.4-8.2)
[2020-12-19 07:00] LABS: Band Neutrophils 5 % (0-10); Eosinophils 1 % (0-10); Lymphocytes 8 % (20-55); Segmented Neutrophils 79 % (50-85); Total Cells Counted 100
[2020-12-19 07:01] LABS: Hypochromasia Slight; Microcytosis 1+; Platelet Estimate Decreased
[2020-12-19] MEDS: ZINC GLUCONATE 50 MG TABLET PO SCH (08:10)
[2020-12-19] MEDS: ASPIRIN CHEW 81 MG TABLET PO SCH (08:10)
[2020-12-19] MEDS: AMIODARONE 200 MG TABLET PO SCH (08:10)
[2020-12-19] MEDS: CHOLECALCIFEROL 1,000 UNIT TABLET PO SCH (08:10)
[2020-12-19] MEDS: MORPHINE 2 MG/1 ML SYRINGE IV PRN ×5 (08:10→16:20)
[2020-12-19] MEDS: ASCORBIC ACID 500 MG TABLET PO SCH (08:10)
[2020-12-19] MEDS: MICAFUNGIN 100 MG in SODIUM CHLORIDE 0.9% 100 ML IV SCH (09:03)
[2020-12-19] MEDS: FAMOTIDINE 20 MG/2 ML VIAL IV SCH (09:13)
[2020-12-19] MEDS: LORazepam 2 MG/1 ML VIAL IV PRN ×2 (15:48→16:21)
[2020-12-21] MEDS ORDERED: SODIUM CHLORIDE 0.9% 1,000 ML IV SCH (08:00)
== END 2020-12-19 17:48 | disposition expired | DRG 4 ==
LOC: N.ED 11:14 → N.EDINP 13:25 → SUATTDRO 13:25 → N.CC 17:54
PROVIDERS: ADMIT Internal Medicine; ATTEND Internal Medicine